=== PATIENT | male | born 1935 | race Caucasian/White ===

== ENCOUNTER 2019-12-12 12:41 | Observation (INO) | payer MEDICARE ==
[~2019-12-12] VITALS: Ht 182.9 cm; Wt 77.1 kg
[~2019-12-12 12:41] MED LIST: ACYC800 PO; OPTLUBOPOA OD; PRED20 PO
[2019-12-12 13:10] LABS: BASOPHILS ABSOLUTE AUTO 0.05 K/mm3 (0.00-0.23); BASOPHILS PERCENT AUTO 1 % (0-2); EOSINOPHILS ABSOLUTE AUTO 0.09 K/mm3 (0.00-0.68); EOSINOPHILS PERCENT AUTO 1 % (0-6); Hematocrit 42.7 % (37.0-53.0); Hemoglobin 14.5 g/dL (13.5-17.5); IMMATURE GRAN ABSOLUTE AUTO 0.04 K/mm3 (0.00-0.10); IMMATURE GRAN PERCENT AUTO 1 % (0-1); LYMPHOCYTES ABSOLUTE AUTO 1.56 K/mm3 (0.84-5.20); LYMPHOCYTES PERCENT AUTO 20 % (21-46); MONOCYTES ABSOLUTE AUTO 0.75 K/mm3 (0.16-1.47); MONOCYTES PERCENT AUTO 10 % (4-13); Mean Corpuscular Volume 88 fL (80-100); Mean Platelet Volume 12.2 fL (9.1-12.4); NEUTROPHILS ABSOLUTE AUTO 5.29 K/mm3 (1.96-9.15); NEUTROPHILS PERCENT AUTO 68 % (41-73); Platelet Count 123 K/mm3 (150-400); RDW Coefficient Variation 11.7 % (11.7-14.2); RDW Standard Deviation 37.8 fL (35.1-46.3); Red Blood Cell Count 4.83 M/mm3 (4.30-5.90); White Blood Cell Count 7.78 K/mm3 (4.00-11.30)
[2019-12-12 13:32] LABS: Alanine Aminotransfer (ALT/SGP 38 U/L (12-78); Albumin, Blood 3.6 g/dL (3.4-5.0); Albumin/Globulin Ratio 0.9 (0.8-1.8); Alk Phos 104 U/L (50-136); Anion Gap 6 mmol/L (6-16); Aspartate Aminotrans (AST/SGOT 21 U/L (12-37); Bilirubin, Total 0.7 mg/dL (0.1-1.0); Blood Urea Nitrogen 23 mg/dL (8-24); CO2, Blood 28 mmol/L (21-32); Chloride, Blood 97 mmol/L (98-108); Creatinine, Blood 0.85 mg/dL (0.60-1.20); Globulin, Blood 3.8 g/dL (2.2-4.0); Glomerular Filtration Rate >60 (60-); Glucose, Blood 438 mg/dL (70-99); Potassium, Blood 4.3 mmol/L (3.5-5.5); Sodium, Blood 131 mmol/L (136-145); Total Protein, Blood 7.4 g/dL (6.4-8.2)
[2019-12-12 15:56] LABS: Source, Urine Clean Catch
[2019-12-12 17:40] LABS: Appearance, Urine Clear (Clear); Bilirubin, Urine Neg (Neg); Blood, Urine 1+ (Neg); Color, Urine Yellow (P-Yellow); Glucose Qualitative, Urine 4+ (Neg); Ketones, Urine 3+ (Neg); Leukocyte Esterase, Urine Neg (Neg); Nitrite, Urine Neg (Neg); Protein, Urine Neg (Neg); Urobilinogen, Urine NORM (Normal)
[2019-12-12 18:24] LABS: Bacteria Few /hpf; Red Blood Cells, Urine 0-2 /hpf (0-2); Squamous Epithelial Cells Rare /hpf (Few); White Blood Cells, Urine 0-2 /hpf (0-5)
[2019-12-12] MEDS ORDERED: AMLO5 PO (18:58)
[2019-12-12] MEDS ORDERED: HYDCHL25 PO (18:59)
[2019-12-12] MEDS ORDERED: METO25 PO (18:59)
[2019-12-12] MEDS ORDERED: Glyburide5 MG PO (19:00)
[2019-12-12] MEDS ORDERED: Aspir 8181 MG PO (19:00)
[2019-12-12] MEDS ORDERED: METF500 PO (19:01)
[2019-12-12] MEDS ORDERED: MULTI-VITAMIN1 EAC2 PO (20:23)
--- NOTE | 2019-12-12 22:18 | NUR ---
2200 PT ADMITTED TO ROOM 344 PER CART FROM ER; THIS NURSE RECEIVED REPORT FROM KENDY BLUNT, VIA ER; ALERT AND ORIENTED X 1; BED ALARM APPLIED; PHOTOS TAKEN BILATERAL LOWER EXTREMITIES; SLIDE INTO BED VIA SLIDER SHEET FROM CART X 4 ASSIST.
--- NOTE | 2019-12-13 04:28 | NUR ---
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
--- NOTE | 2019-12-13 13:59 | NUR ---
Spoke with Dr Castañeda prior to Pt visit. Dr Castañeda had conversation with Pt's daughter and discussed goals of care. Pt has been failure to thrive and refusing medications. Family agrees to have Pt placed on Comfort Care. Pt is sitting in chair upon arrival. He is A&O to self only. Pt appears comfortable with no S/S of distress at this time. Palliative Care will F/U when family is present.
--- NOTE | 2019-12-13 17:40 | NUR ---
SHIFT SUMMARY PT VERY PREOCCUPIED WITH GOING BACK HOME AND CONSISTANTLY ATTEMPTING TO REDIRECT CONVERSATION BACK TO GOING HOME. DAUGHTER HERE THIS MORNING BUT HASN'T BEEN BACK SINCE. UP IN CHAIR MOST OF THE DAY WITH ONLY A SHORT NAP THIS AFTERNOON. 1 PERSON ASSIST FOR AMBULATION. DID REFUSE HIS MEDS THIS MORNING AND ANY LAB DRAWS. NOTIFIED.
--- NOTE | 2019-12-14 04:27 | NUR ---
SHIFT SUMMARY PT HAS RESTED OFF AND ON FOR MOST OF THE NIGHT, MOVES BETWEEN THE BED AND CHAIR FOR MOST OF THE NIGHT. PT IS A/O TO SELF WITH NONSENSICAL SPEECH. PT HOWEVER IS PLESANT WITH STAFF AND IS ABLE TO FOLLOW DIRECTION. PT HAS BEEN COMFORT MEASURES PER ORDERS. VITALS ARE STILL BEING DONE PT IS STILL RECEVING IS METOPROLOL. PT REFUSES HIS HS DOSE OF LANTUS DESPITE ENCOURAGEMENT. BG 230. PT COMFORT ASSESSED T/O SHIFT, HE DENIES PAIN WHEN ASKED. PT REPOSITONS HIMSELF IN BED INDEPENDENTLY MOST OF THE TIME. PT HAD AN INCONTINENT EPISODE OF URINE THIS SHIFT, REQUIRING A LINEN CHANGE. NO ACUTE CHANGES TO REPORT OVERNIGHT. BED IN LOWEST POSITION, CALL LIGHT WITHIN REACH. WILL CONTINUE TO MONITOR AND REPORT TO ONCOMING RN.
--- NOTE | 2019-12-14 14:23 | NUR ---
Pt sitting in chair upon arrival. Pt engages in non sensical conversation but appears comfortable. Pt is pleasantly confused. No S/S of distress at this time. Called and left a message with daughter Toya's instructing to call Palliative Care with any questions or concerns. Spoke with Dr Castañeda and discussed case. Dr Castañeda reports Pt is experiencing signs of dementia and is considering this diagnosis. Palliative Care will remain available.
--- NOTE | 2019-12-14 17:51 | NUR ---
SHIFT SUMMARY PT UP IN CHAIR MOST OF DAY. DID LAY DOWN LATE THIS AFTERNOON AND HAS NAPPED ON AND OFF SINCE THEN. TOOK HIS MEDS TODAY WITHOUT COMMENT BUT DID OBJECT TO INSULIN THIS MORNING. DID COOPERATE AND ALLOW INSULINS THOUGH. DAUGHTER IN TO VISIT FOR A SHORT TIME THIS MORNING AND PT PERSISTING IN WANTING TO GO HOME TODAY BUT EXPLAINED TO PT HE WOULD LIKELY GO BACK HOME TOMORROW. HAS BEEN COOPERATIVE THROUGHOUT DAY. TOOK A WALK WITH STAFF IN HALLWAY TO WINDOW AND BACK TO ROOM THIS AFTERNOON PRIOR TO NAP.
--- NOTE | 2019-12-15 04:30 | NUR ---
SHIFT SUMMARY PT HAS HAD NO ACUTE CHANGES THIS SHIFT, HAS SET OFF BED ALARM A FEW TIMES ATTEMPTING TO USE THE BATHROOM, PT REFUSED PM MEDS, CBG WAS 408 AND INSURANCE COORDINATOR ASSISTED W/INSULIN ADMIN. PT JUST TOILETD AND IS BEDRESTING AT THIS TIME, CALL LIGHT IN REACH, BED ALARM ON, WILL CONT TO MONITOR UNTIL REPORT GIVEN TO DAY RN.
--- NOTE | 2019-12-15 15:17 | NUR ---
DISCHARGE NOTE- PT DAUGHTER PRESENT FOR DISCHARGE INSTRUCTIONS. DURRING THE DISCHARGE TEACHING THE DAUGHTER STATED THAT THE PT DID NOT HAVE ANY OF HIS MEDICATIONS AT HOME. CALLED DR GARCIA AND LEFT A MESSAGE REQUESTING A FEW DAYS FILL FOR ALL OF THE PT HOME MEDICATIONS. THE PT DAUGHTER HAD AN APPOINTMENT AND STATED SHE WILL FOLLOW UP WITH THE PT PCP KAL. SHE DID NOT WANT TO WAIT FOR THE DOCTOR TO SAY YES OR NO TO THE SCRIPTS. SHE STATED SHE CAN CALL THE PT PCP ABOUT THE SCRIPTS. SHE WOULD LIKE A CALL IF ORDERS A REFILL FOR THE PERSCRIPTIONS.
--- NOTE | 2019-12-15 16:21 | NUR ---
RECIEVED A CALL FROM DR CASSIUS NGUYEN CALL IN A 2 WEEK FILL FOR ALL THE PT HOME MEDICATIONS CALLING ASAEL NOW FOR SCRIPT ORDERS. WILL CALL THE PT DAUGHTER PER HER REQUEST.
--- NOTE | 2019-12-15 18:33 | NUR ---
Initial spiritual care note: I met with pt's dtr, Twyla, who is known to me b/c her was in ICU recently. She admits to feeling overwhelmed. Her brother lives with pt, but he has MS and is somewhat debilitated according to twyla. Therefore, Twyla is stretched thin with caring for her spouse, father, and brother. Pt said little. He appears frail and withdrawn. I offered gentle family and marriage counsellor and affirmation to Twyla with good effect. Pt is being d/c'd.
== END 2019-12-15 15:15 | disposition home health service (06) ==
LOC: ER 12:41 → MEDS 12:42
PROVIDERS: Emergency Medicine; ADMIT Internal Medicine
DX: G93.40 Encephalopathy, unspecified (principal); F03.90 Unspecified dementia, unspecified severity, without behavioral disturbance, psychotic disturbance, mood disturbance, and anxiety; I10 Essential (primary) hypertension; E11.65 Type 2 diabetes mellitus with hyperglycemia; E11.621 Type 2 diabetes mellitus with foot ulcer; L97.519 Non-pressure chronic ulcer of other part of right foot with unspecified severity; I16.0 Hypertensive urgency; Z91.19 Patient's noncompliance with other medical treatment and regimen; Z79.82 Long term (current) use of aspirin; Z79.899 Other long term (current) drug therapy
CPT/HCPCS: 51701; 70450; 71046; 73660; 80053; 81001; 82947; 83036; 83605; 83880; 85025; 93005; 93010; 96361; 96372; 96374-59; 96375-59; 97110; 97116; 97161; 97165; 97530; 97535; 99285-25; A9270-GY; G0378; J1170; J1650; J1885; J7030

== ENCOUNTER → 2020-09-29 | Outpatient (CLI) | payer MEDICARE ==
[~2020-09-29] MED LIST changes: +ACET325 PO; +AMLO5 PO; +Aspir 8181 MG PO; +BASAGLAR K100 UNIT/1 SC; +Glyburide5 MG PO; +HUMALOG KW100 UNIT/1 SC; +HYDCHL25 PO; +LEVSOD25 PO; +METF500 PO; +METO25 PO; +MULTI-VITAMIN1 EAC2 PO; +Polyvinyl Alcoh15 ML BOTHEYES; +Prinivil10 MG PO; +SEROQUEL25 MG PO
[2020-09-29 19:05] LABS: BASOPHILS ABSOLUTE AUTO 0.11 K/mm3 (0.00-0.23); BASOPHILS PERCENT AUTO 2 % (0-2); EOSINOPHILS ABSOLUTE AUTO 0.36 K/mm3 (0.00-0.68); EOSINOPHILS PERCENT AUTO 5 % (0-6); Hematocrit 44.7 % (37.0-53.0); Hemoglobin 14.4 g/dL (13.5-17.5); IMMATURE GRAN ABSOLUTE AUTO 0.02 K/mm3 (0.00-0.10); IMMATURE GRAN PERCENT AUTO 0 % (0-1); LYMPHOCYTES ABSOLUTE AUTO 2.04 K/mm3 (0.84-5.20); LYMPHOCYTES PERCENT AUTO 28 % (21-46); MONOCYTES ABSOLUTE AUTO 0.62 K/mm3 (0.16-1.47); MONOCYTES PERCENT AUTO 9 % (4-13); Mean Corpuscular HGB 29.3 pg (26.0-34.0); Mean Corpuscular HGB Conc 32.2 g/dL (31.5-36.5); Mean Corpuscular Volume 91 fL (80-100); NEUTROPHILS ABSOLUTE AUTO 4.03 K/mm3 (1.96-9.15); NEUTROPHILS PERCENT AUTO 56 % (41-73); RDW Coefficient Variation 13.1 % (11.7-14.2); RDW Standard Deviation 43.4 fL (35.1-46.3); Red Blood Cell Count 4.92 M/mm3 (4.30-5.90); White Blood Cell Count 7.18 K/mm3 (4.00-11.30)
== END ==
LOC: LAB SHORT 13:55
PROVIDERS: Family Medicine
DX: E03.9 Hypothyroidism, unspecified (principal); E11.9 Type 2 diabetes mellitus without complications; I10 Essential (primary) hypertension; F02.81 Dementia in other diseases classified elsewhere, unspecified severity, with behavioral disturbance
CPT/HCPCS: 83036; 85025

== ENCOUNTER → 2020-12-22 | Outpatient (CLI) | payer MEDICARE ==
[2020-12-22 19:39] LABS: Alanine Aminotransfer (ALT/SGP 18 U/L (12-78); Albumin, Blood 3.8 g/dL (3.4-5.0); Albumin/Globulin Ratio 1.2 (0.8-1.8); Alk Phos 71 U/L (50-136); Anion Gap 5 mmol/L (6-16); Aspartate Aminotrans (AST/SGOT 19 U/L (12-37); Bilirubin, Total 0.6 mg/dL (0.1-1.0); Blood Urea Nitrogen 21 mg/dL (8-24); Bun/Creatinine Ratio 24.3 (12.0-20.0); CO2, Blood 30 mmol/L (21-32); Calcium, Blood 9.2 mg/dL (8.5-10.1); Chloride, Blood 103 mmol/L (98-108); Creatinine, Blood 0.86 mg/dL (0.60-1.20); Globulin, Blood 3.1 g/dL (2.2-4.0); Glomerular Filtration Rate >60 (60-); Glucose, Blood 134 mg/dL (70-99); Sodium, Blood 138 mmol/L (136-145); Total Protein, Blood 6.9 g/dL (6.4-8.2)
== END | disposition home or self-care (01) ==
LOC: LAB 18:56 → LAB SHORT 18:56
PROVIDERS: Family Medicine
DX: E11.9 Type 2 diabetes mellitus without complications (principal); D64.9 Anemia, unspecified
CPT/HCPCS: 80053; 83036; 83880

== ENCOUNTER → 2021-03-23 | Outpatient (CLI) | payer MEDICARE ==
[2021-03-23 18:58] LABS: BASOPHILS ABSOLUTE AUTO 0.07 K/mm3 (0.00-0.23); BASOPHILS PERCENT AUTO 1 % (0-2); EOSINOPHILS ABSOLUTE AUTO 0.29 K/mm3 (0.00-0.68); EOSINOPHILS PERCENT AUTO 4 % (0-6); Hematocrit 44.4 % (37.0-53.0); Hemoglobin 14.5 g/dL (13.5-17.5); IMMATURE GRAN ABSOLUTE AUTO 0.02 K/mm3 (0.00-0.10); IMMATURE GRAN PERCENT AUTO 0 % (0-1); LYMPHOCYTES ABSOLUTE AUTO 1.68 K/mm3 (0.84-5.20); LYMPHOCYTES PERCENT AUTO 26 % (21-46); MONOCYTES ABSOLUTE AUTO 0.62 K/mm3 (0.16-1.47); MONOCYTES PERCENT AUTO 9 % (4-13); Mean Corpuscular HGB 29.8 pg (26.0-34.0); Mean Corpuscular HGB Conc 32.7 g/dL (31.5-36.5); Mean Corpuscular Volume 91 fL (80-100); Mean Platelet Volume 12.7 fL (9.1-12.4); NEUTROPHILS ABSOLUTE AUTO 3.89 K/mm3 (1.96-9.15); NEUTROPHILS PERCENT AUTO 59 % (41-73); Platelet Count 131 K/mm3 (150-400); RDW Coefficient Variation 12.6 % (11.7-14.2); RDW Standard Deviation 41.8 fL (35.1-46.3); Red Blood Cell Count 4.87 M/mm3 (4.30-5.90); White Blood Cell Count 6.57 K/mm3 (4.00-11.30)
[2021-03-23 19:58] LABS: Alanine Aminotransfer (ALT/SGP 22 U/L (12-78); Albumin, Blood 4.1 g/dL (3.4-5.0); Alk Phos 92 U/L (50-136); Anion Gap 4 mmol/L (6-16); Aspartate Aminotrans (AST/SGOT 19 U/L (12-37); Bilirubin, Total 0.7 mg/dL (0.1-1.0); Blood Urea Nitrogen 18 mg/dL (8-24); Bun/Creatinine Ratio 16.5 (12.0-20.0); CO2, Blood 31 mmol/L (21-32); Chloride, Blood 102 mmol/L (98-108); Creatinine, Blood 1.09 mg/dL (0.60-1.20); Glomerular Filtration Rate >60 (60-); Glucose, Blood 235 mg/dL (70-99); Potassium, Blood 4.2 mmol/L (3.5-5.5); Sodium, Blood 137 mmol/L (136-145); Thyroxine (T4) 5.9 ug/dL (4.5-12.1); Total Protein, Blood 8.1 g/dL (6.4-8.2)
== END | disposition home or self-care (01) ==
LOC: LAB 12:42 → LAB SHORT 12:42
PROVIDERS: Family Medicine
DX: E11.9 Type 2 diabetes mellitus without complications (principal); G30.9 Alzheimer's disease, unspecified; I10 Essential (primary) hypertension
CPT/HCPCS: 80053; 83036; 83880; 84436; 84443; 85025

== ENCOUNTER → 2021-08-30 | Outpatient (CLI) | payer MEDICARE ==
[2021-08-30 12:23] LABS: BASOPHILS ABSOLUTE AUTO 0.09 K/mm3 (0.00-0.23); BASOPHILS PERCENT AUTO 1 % (0-2); EOSINOPHILS ABSOLUTE AUTO 0.58 K/mm3 (0.00-0.68); EOSINOPHILS PERCENT AUTO 8 % (0-6); Hematocrit 44.1 % (37.0-53.0); Hemoglobin 14.3 g/dL (13.5-17.5); IMMATURE GRAN ABSOLUTE AUTO 0.02 K/mm3 (0.00-0.10); IMMATURE GRAN PERCENT AUTO 0 % (0-1); LYMPHOCYTES ABSOLUTE AUTO 0.97 K/mm3 (0.84-5.20); LYMPHOCYTES PERCENT AUTO 13 % (21-46); MONOCYTES ABSOLUTE AUTO 0.57 K/mm3 (0.16-1.47); MONOCYTES PERCENT AUTO 7 % (4-13); Mean Corpuscular HGB 29.6 pg (26.0-34.0); Mean Corpuscular HGB Conc 32.4 g/dL (31.5-36.5); Mean Corpuscular Volume 91 fL (80-100); NEUTROPHILS ABSOLUTE AUTO 5.44 K/mm3 (1.96-9.15); NEUTROPHILS PERCENT AUTO 71 % (41-73); Platelet Count 94 K/mm3 (150-400); RDW Coefficient Variation 12.7 % (11.7-14.2); RDW Standard Deviation 42.4 fL (35.1-46.3); Red Blood Cell Count 4.83 M/mm3 (4.30-5.90); White Blood Cell Count 7.67 K/mm3 (4.00-11.30)
[2021-08-30 12:26] LABS: Alanine Aminotransfer (ALT/SGP 45 U/L (12-78); Albumin, Blood 3.6 g/dL (3.4-5.0); Albumin/Globulin Ratio 0.9 (0.8-1.8); Alk Phos 125 U/L (50-136); Anion Gap 9 mmol/L (6-16); Aspartate Aminotrans (AST/SGOT 36 U/L (12-37); Bilirubin, Total 0.6 mg/dL (0.1-1.0); Blood Urea Nitrogen 19 mg/dL (8-24); Bun/Creatinine Ratio 21.1 (12.0-20.0); CO2, Blood 30 mmol/L (21-32); Calcium, Blood 9.2 mg/dL (8.5-10.1); Chloride, Blood 98 mmol/L (98-108); Globulin, Blood 4.2 g/dL (2.2-4.0); Glomerular Filtration Rate >60 (60-); Glucose, Blood 312 mg/dL (70-99); Potassium, Blood 3.9 mmol/L (3.5-5.5); Sodium, Blood 137 mmol/L (136-145); Thyroxine (T4) 6.2 ug/dL (4.5-12.1); Total Protein, Blood 7.8 g/dL (6.4-8.2)
[2021-08-30 12:31] LABS: Mean Platelet Volume 13.3 fL (9.1-12.4)
== END ==
LOC: LAB SHORT 10:15
PROVIDERS: Family Medicine
DX: E11.9 Type 2 diabetes mellitus without complications (principal); E03.9 Hypothyroidism, unspecified; G30.9 Alzheimer's disease, unspecified; I11.0 Hypertensive heart disease with heart failure; I50.9 Heart failure, unspecified
CPT/HCPCS: 80053; 83036; 83880; 84436; 84443; 85025

== ENCOUNTER 2021-09-17 10:46 | Inpatient (IN) | payer MEDICARE ==
[~2021-09-17] VITALS: Ht 182.9 cm; Wt 90.7 kg
[2021-09-17 11:10] LABS: BASOPHILS ABSOLUTE AUTO 0.08 K/mm3 (0.00-0.23); BASOPHILS PERCENT AUTO 0 % (0-2); EOSINOPHILS PERCENT AUTO 0 % (0-6); Hematocrit 37.1 % (37.0-53.0); Hemoglobin 12.4 g/dL (13.5-17.5); IMMATURE GRAN ABSOLUTE AUTO 1.15 K/mm3 (0.00-0.10); IMMATURE GRAN PERCENT AUTO 5 % (0-1); LYMPHOCYTES ABSOLUTE AUTO 1.46 K/mm3 (0.84-5.20); LYMPHOCYTES PERCENT AUTO 6 % (21-46); MONOCYTES ABSOLUTE AUTO 1.56 K/mm3 (0.16-1.47); MONOCYTES PERCENT AUTO 7 % (4-13); Mean Corpuscular HGB 29.8 pg (26.0-34.0); Mean Corpuscular HGB Conc 33.4 g/dL (31.5-36.5); Mean Corpuscular Volume 89 fL (80-100); Mean Platelet Volume 12.8 fL (9.1-12.4); NEUTROPHILS ABSOLUTE AUTO 19.35 K/mm3 (1.96-9.15); NEUTROPHILS PERCENT AUTO 82 % (41-73); Platelet Count 82 K/mm3 (150-400); RDW Coefficient Variation 13.1 % (11.7-14.2); RDW Standard Deviation 42.7 fL (35.1-46.3); Red Blood Cell Count 4.16 M/mm3 (4.30-5.90)
[2021-09-17 11:19] LABS: Albumin, Blood 2.7 g/dL (3.4-5.0); Albumin/Globulin Ratio 0.7 (0.8-1.8); Bilirubin, Total 0.8 mg/dL (0.1-1.0); Bun/Creatinine Ratio 22.7 (12.0-20.0); C-REACTIVE PROTEIN, EXT RANGE 18.7 mg/dL (0.000-0.300); Calcium, Blood 9.2 mg/dL (8.5-10.1); Creatinine, Blood 2.03 mg/dL (0.60-1.20); Globulin, Blood 3.7 g/dL (2.2-4.0); Potassium, Blood 4.6 mmol/L (3.5-5.5); Total Protein, Blood 6.4 g/dL (6.4-8.2)
[2021-09-17] MEDS ORDERED: Prozac20 MG PO (11:27)
[2021-09-17] MEDS ORDERED: FURO40 PO (11:27)
[2021-09-17] MEDS ORDERED: MELO7.5 PO (11:28)
[2021-09-17] MEDS ORDERED: MIRALAX17 G3 PO (11:28)
[2021-09-17] MEDS ORDERED: POTA10T PO (11:29)
[2021-09-17] MEDS ORDERED: TRAZ50 PO (11:30)
--- NOTE | 2021-09-17 13:00 | NUR ---
ADMIT NOTE PT ADMITTED FROM ER FOR CELLULITIS AND AMS. REPORT RECIEVED FROM KENDY FONG. PT ARRIVED VIA GURNEY AND WAS A MAX ASSIST LIFT TRANSFER TO BED. PT IS NON-RESPONSIVE AND DOES NOT FOLLOW COMMANDS. PT SITUATED IN A POSITION OF COMFORT WITH BED IN LOWEST POSITION AND CALL LIGHT WITHING REACH. PT DOES NOT APPEAR TO BE IN ANY DISTRESS.
[2021-09-17 15:23] LABS: C DIFFICILE DNA NEGATIVE (Negative)
--- NOTE | 2021-09-17 17:28 | NUR ---
SHIFT SUMMARY PT REMAINED NON-RESPONSIVE T/O SHIFT. PT'S DAUGHTER ARRIVED AND SAT AT BEDSIDE FOR A FEW MINUTES AND LEFT HER CONTACT INFORMATION ON THE WHITE BOARD IN PT'S ROOM. NO OTHER CHANGES THIS SHIFT.
[2021-09-18 04:58] LABS: BASOPHILS ABSOLUTE AUTO 0.04 K/mm3 (0.00-0.23); BASOPHILS PERCENT AUTO 0 % (0-2); EOSINOPHILS ABSOLUTE AUTO 0.01 K/mm3 (0.00-0.68); EOSINOPHILS PERCENT AUTO 0 % (0-6); Hemoglobin 11.7 g/dL (13.5-17.5); IMMATURE GRAN ABSOLUTE AUTO 0.57 K/mm3 (0.00-0.10); IMMATURE GRAN PERCENT AUTO 3 % (0-1); LYMPHOCYTES ABSOLUTE AUTO 1.49 K/mm3 (0.84-5.20); LYMPHOCYTES PERCENT AUTO 8 % (21-46); MONOCYTES ABSOLUTE AUTO 1.34 K/mm3 (0.16-1.47); MONOCYTES PERCENT AUTO 7 % (4-13); Mean Corpuscular HGB 29.5 pg (26.0-34.0); Mean Corpuscular HGB Conc 32.5 g/dL (31.5-36.5); Mean Corpuscular Volume 91 fL (80-100); NEUTROPHILS ABSOLUTE AUTO 15.24 K/mm3 (1.96-9.15); NEUTROPHILS PERCENT AUTO 82 % (41-73); Platelet Count 76 K/mm3 (150-400); RDW Coefficient Variation 13.1 % (11.7-14.2); RDW Standard Deviation 43.3 fL (35.1-46.3); Red Blood Cell Count 3.97 M/mm3 (4.30-5.90); White Blood Cell Count 18.69 K/mm3 (4.00-11.30)
--- NOTE | 2021-09-18 05:15 | NUR ---
SHIFT SUMMARY PT WAS ASLEEP IN BED WITH RISE AND FALL OF CHEST WITH NO S/S OF DISTRESS AT THE START OF THIS SHIFT. THIS NURSE WAS ABLE TO GET PT TO OPEN EYES TO VERBAL COMMAND, BARELY, BUT VERY LETHARGIC. PT HAD A FEVER AND NEW ORDER FOR TYLENOL SUPP. WAS GIVEN AND EFFECTIVE THIS SHIFT. BS HELD PER DOCTOR D/T NOT BEING RESPONSIVE. PT HAS FLUIDS RUNNING AND HOB ELEVATED WITH O2 VIA N/C IN PLACE. PT CURRENTLY RESTING IN BED AND RESPONDS TO TOUCH/VOICES, WILL CONTINUE TO MONITOR UNTIL REPORT IS GIVEN.
[2021-09-18 05:17] LABS: Mean Platelet Volume 13.1 fL (9.1-12.4)
[2021-09-18 05:41] LABS: Albumin, Blood 2.5 g/dL (3.4-5.0); Anion Gap 8 mmol/L (6-16); Blood Urea Nitrogen 51 mg/dL (8-24); Bun/Creatinine Ratio 30.2 (12.0-20.0); CO2, Blood 27 mmol/L (21-32); Calcium, Blood 8.9 mg/dL (8.5-10.1); Chloride, Blood 104 mmol/L (98-108); Creatinine, Blood 1.69 mg/dL (0.60-1.20); Glomerular Filtration Rate 39 (60-); Glucose, Blood 241 mg/dL (70-99); Phosphorus, Blood 2.9 mg/dL (2.5-4.9); Potassium, Blood 4.2 mmol/L (3.5-5.5); Sodium, Blood 139 mmol/L (136-145); Vancomycin, Random <0.8 ug/mL
--- NOTE | 2021-09-18 18:04 | NUR ---
PT SUMMARY: PT CAME MORE ALERT FOR THE SHIFT BEFORE LUNCH TIME STILL LETHARGIC MOST OF THE SHIFT WAS ABLE TO SIT ON THE SIDE OF THE BED ONCE, ABLE TO STATE NAME BUT MOSTLY WORDS ARE NONSENSICAL WHICH THE NURSE FROM [facility] VERIFIED ITS CLSOE TO HIS BASELINE DUE TO DEMENTIA AND THE PT IS INDEPENDENTLY MOBILE ADN AMBULATES, THE LEFT EYELID DROOP IS ALSO CHRONIC. PT UNABLE TO FOCUS AND FOLLOWS DIRECTION FALLS ASLEEP QUICK. UNABLE TO FEED PT TODAY DUE TO POSS ASPIRATION. MAINTENANCE FLUID LR SWITCHED TO NS AT 75MLS/HR. PT IS INCONTINENT OF BOTH BOWEL AND BLADDER HAD 2 BMS FOR THE SHIFT ATTENDS IN PLACE. DAUGHTER CAME IN TO VISIT. PT HAD A FEVER OF 100.1 BEFORE THE END OF THE SHIFT WENT DOWN TO 98.5 AFTER TYLENOL SUPP. PT HAS BEEN REPOSITIONED IN BED, BED ALARM ON FOR SAFETY, PT REDIRECTED WHEN ATTEMPTING TO GET OUT OF BED. PIV ON LEFT HAND REPLACED AFTER PT PULLED THE LINE, NS NOW INFUSING 75MLS/HR. NO OTHER ISSUES ENCOUNTERED PT RESTING IN BED CALL LIGHTS IN REACH WILL MONITOR
--- NOTE | 2021-09-19 05:18 | NUR ---
SHIFT SUMMARY PT. AOX1 VERY CONFUSED, IMPULSIVE AND NOT EASY TO REDIRECT ALL SHIFT. BED ALARM IN PLACE AND PT CONTINUES TO PULL OF BRIEFS, GOWNS AND JUST PULLED OUT IV. PT CONTINUES TO TRY TO EXIT BED WITH ALARM IN PLACE. PT. PICKS AT LEFT EYE AND ATTEMPTS TO EAT WIPES WHILE BEING CLEANED. PT. CURRENTLY AWAKE IN BED AND THIS NURSE WILL CONTINUE TO MONITOR UNTIL REPORT IS GIVEN.
--- NOTE | 2021-09-19 17:50 | NUR ---
SHIFT SUMMARY- PT DIET ORDER CHANGED AFTER SPEECH THERAPY EVAL TO PUREE WITH THIN LIQUIDS BY SPOON. PT IS A 1:1 FEED ASSIST MEDS CRUSHED IN APPLESAUCE. PT HAS ATTEMPTED TO GET OUT OF BED A COUPLE OF TIMES THIS SHIFT. IV IN PLACE IN THE RUDY RUNNING NS AT 75ML/HR. PT HAS HAD NO S&S OF DISTRESS T/O THE DAY. HIS DAUGHTER CAME TO VISIT AND CONFIRMED THE PT BASELINE MENTATION IS CONFUSED, AND PT SPEEKS IN WORD SALAD, WHICH IS ALSO BASELINE. PT BG CHANGED TO AC/HS AND HUMALOG CHANGED TO AC PER DR LAW ORDER. PT CURRENTLY SITTING UP IN BED, CALL LIGHT IN REACH, BED ALARM SET FOR SAFETY, CAN ASSISTING THE PT WITH DINNER AT THIS TIME. NO S&S OF DISTRESS AT THIS TIME. WILL CTM.
[2021-09-20 05:34] LABS: BASOPHILS ABSOLUTE AUTO 0.05 K/mm3 (0.00-0.23); BASOPHILS PERCENT AUTO 1 % (0-2); EOSINOPHILS ABSOLUTE AUTO 0.11 K/mm3 (0.00-0.68); EOSINOPHILS PERCENT AUTO 1 % (0-6); Hematocrit 35.8 % (37.0-53.0); Hemoglobin 11.5 g/dL (13.5-17.5); IMMATURE GRAN ABSOLUTE AUTO 0.05 K/mm3 (0.00-0.10); IMMATURE GRAN PERCENT AUTO 1 % (0-1); LYMPHOCYTES PERCENT AUTO 15 % (21-46); MONOCYTES ABSOLUTE AUTO 0.95 K/mm3 (0.16-1.47); MONOCYTES PERCENT AUTO 12 % (4-13); Mean Corpuscular HGB 29.6 pg (26.0-34.0); Mean Corpuscular HGB Conc 32.1 g/dL (31.5-36.5); Mean Corpuscular Volume 92 fL (80-100); Mean Platelet Volume 12.4 fL (9.1-12.4); NEUTROPHILS ABSOLUTE AUTO 5.78 K/mm3 (1.96-9.15); NEUTROPHILS PERCENT AUTO 71 % (41-73); Platelet Count 81 K/mm3 (150-400); RDW Coefficient Variation 12.8 % (11.7-14.2); RDW Standard Deviation 43.3 fL (35.1-46.3); Red Blood Cell Count 3.89 M/mm3 (4.30-5.90); White Blood Cell Count 8.14 K/mm3 (4.00-11.30)
[2021-09-20 06:30] LABS: Albumin, Blood 2.6 g/dL (3.4-5.0); Anion Gap 6 mmol/L (6-16); Blood Urea Nitrogen 26 mg/dL (8-24); CO2, Blood 28 mmol/L (21-32); Calcium, Blood 8.7 mg/dL (8.5-10.1); Chloride, Blood 108 mmol/L (98-108); Creatinine, Blood 0.93 mg/dL (0.60-1.20); Glomerular Filtration Rate >60 (60-); Glucose, Blood 248 mg/dL (70-99); Phosphorus, Blood 2.1 mg/dL (2.5-4.9); Potassium, Blood 4.5 mmol/L (3.5-5.5); Sodium, Blood 142 mmol/L (136-145); Vancomycin, Trough 8.3 ug/mL (5.0-10.0)
--- NOTE | 2021-09-20 07:36 | NUR ---
WET WHEELER SUMMARY PT HAD A FAIR SHIFT. BP OVER THE PAST HRS ELEVATED. DR. SIMMS INFORMED AND A ONE TIME DOSE OF METOPROLOL WAS ADMINISTERED SEE EMAR. HE OULLED HIS IV OUT, ALL EFFORTS TO REPLACE IT WAS FUTILE. WILL CONTINUE TO MONITOR HIM.
[2021-09-20] MEDS ORDERED: VITAMIN D5000 UNIT PO (12:38)
[2021-09-20] MEDS ORDERED: DOXY100 PO (12:38)
--- NOTE | 2021-09-20 15:07 | NUR ---
PATIENT D/C'D BACK TO [facility]. SPOKE WITH DARON PINO THERE AND A GURNEY TRANSPORT WAS APPROVED. RX MEDICATIONS FAXED TO [facility] AND PACKET SENT WITH TRANSPORT TEAM.
== END 2021-09-20 15:07 | disposition home or self-care (01) | DRG 871 ==
LOC: ER 10:46 → MEDS 12:12 → ER 12:12 → MEDS 12:29
PROVIDERS: Emergency Medicine; ADMIT Internal Medicine
DX: A41.9 Sepsis, unspecified organism (principal); G92.8 Other toxic encephalopathy; N17.9 Acute kidney failure, unspecified; L03.116 Cellulitis of left lower limb; E11.65 Type 2 diabetes mellitus with hyperglycemia; Z66 Do not resuscitate; F03.90 Unspecified dementia, unspecified severity, without behavioral disturbance, psychotic disturbance, mood disturbance, and anxiety; R65.20 Severe sepsis without septic shock; I10 Essential (primary) hypertension; E03.9 Hypothyroidism, unspecified; Z79.899 Other long term (current) drug therapy; D69.6 Thrombocytopenia, unspecified; S22.42XD Multiple fractures of ribs, left side, subsequent encounter for fracture with routine healing; X58.XXXD Exposure to other specified factors, subsequent encounter
CPT/HCPCS: 36415; 71045; 76770; 80053; 80069; 80202; 82947; 83605; 85025; 86140; 87040; 87493; 92610; 93005; 93010; 99285-25; A9270; J0696; J1644; J1815; J3370; J7030; J7050; J7120

== ENCOUNTER 2021-09-22 10:53 | Inpatient (IN) | payer MEDICARE ==
[~2021-09-22] VITALS: Ht 180.3 cm; Wt 91.4 kg
[~2021-09-22 10:53] MED LIST changes: +DOXY100 PO; +FURO40 PO; +MELO7.5 PO; +MIRALAX17 G3 PO; +POTA10T PO; +Prozac20 MG PO; +TRAZ50 PO; +VITAMIN D5000 UNIT PO
[2021-09-22] MEDS ORDERED: MOBIC15 MG PO (11:17)
[2021-09-22] MEDS ORDERED: TRAZ50 PO (11:18)
[2021-09-22 11:30] LABS: BASOPHILS ABSOLUTE AUTO 0.05 K/mm3 (0.00-0.23); BASOPHILS PERCENT AUTO 0 % (0-2); EOSINOPHILS ABSOLUTE AUTO 0.08 K/mm3 (0.00-0.68); EOSINOPHILS PERCENT AUTO 1 % (0-6); Hematocrit 37.5 % (37.0-53.0); Hemoglobin 12.4 g/dL (13.5-17.5); IMMATURE GRAN ABSOLUTE AUTO 0.15 K/mm3 (0.00-0.10); IMMATURE GRAN PERCENT AUTO 1 % (0-1); LYMPHOCYTES ABSOLUTE AUTO 1.19 K/mm3 (0.84-5.20); LYMPHOCYTES PERCENT AUTO 10 % (21-46); MONOCYTES ABSOLUTE AUTO 1.34 K/mm3 (0.16-1.47); MONOCYTES PERCENT AUTO 12 % (4-13); Mean Corpuscular HGB Conc 33.1 g/dL (31.5-36.5); Mean Corpuscular Volume 91 fL (80-100); Mean Platelet Volume 11.8 fL (9.1-12.4); NEUTROPHILS ABSOLUTE AUTO 8.88 K/mm3 (1.96-9.15); NEUTROPHILS PERCENT AUTO 76 % (41-73); Platelet Count 126 K/mm3 (150-400); RDW Coefficient Variation 12.7 % (11.7-14.2); RDW Standard Deviation 41.7 fL (35.1-46.3); Red Blood Cell Count 4.14 M/mm3 (4.30-5.90); White Blood Cell Count 11.69 K/mm3 (4.00-11.30)
[2021-09-22 11:39] LABS: Alanine Aminotransfer (ALT/SGP 23 U/L (12-78); Albumin, Blood 2.3 g/dL (3.4-5.0); Albumin/Globulin Ratio 0.6 (0.8-1.8); Alk Phos 133 U/L (50-136); Anion Gap 5 mmol/L (6-16); Aspartate Aminotrans (AST/SGOT 20 U/L (12-37); Bilirubin, Total 0.7 mg/dL (0.1-1.0); Blood Urea Nitrogen 21 mg/dL (8-24); Bun/Creatinine Ratio 23.8 (12.0-20.0); CO2, Blood 27 mmol/L (21-32); Calcium, Blood 8.3 mg/dL (8.5-10.1); Chloride, Blood 109 mmol/L (98-108); Creatinine, Blood 0.88 mg/dL (0.60-1.20); Globulin, Blood 3.6 g/dL (2.2-4.0); Glomerular Filtration Rate >60 (60-); Glucose, Blood 174 mg/dL (70-99); Potassium, Blood 3.9 mmol/L (3.5-5.5); Sodium, Blood 141 mmol/L (136-145); Total Protein, Blood 5.9 g/dL (6.4-8.2)
[2021-09-22] MEDS ORDERED: CEPH500 PO (13:06)
--- NOTE | 2021-09-22 19:01 | NUR ---
SHIFT SUMMARY ED ADMIT THIS EVENING. SETTLED INTO ROOM, CONFUSED AND DROWSY. PHOTOS OF LLE CELLULITIS IN CHART. REPOSITIONED WITH LEGS FLOATED.
[2021-09-23 04:59] LABS: Hematocrit 38.7 % (37.0-53.0); Hemoglobin 12.5 g/dL (13.5-17.5); Mean Corpuscular HGB 29.1 pg (26.0-34.0); Mean Corpuscular HGB Conc 32.3 g/dL (31.5-36.5); Mean Corpuscular Volume 90 fL (80-100); Mean Platelet Volume 11.8 fL (9.1-12.4); Platelet Count 147 K/mm3 (150-400); RDW Coefficient Variation 12.8 % (11.7-14.2); RDW Standard Deviation 42.1 fL (35.1-46.3); Red Blood Cell Count 4.29 M/mm3 (4.30-5.90); White Blood Cell Count 12.62 K/mm3 (4.00-11.30)
--- NOTE | 2021-09-23 05:58 | NUR ---
PT IS A/OX TO SELF. HE BECAME RESTLESS AND A KALYAN VEST WAS ORDERED. Q2 RESTRAINT DOCUMENTATION HAS BEEN DONE. THE PT HAS BEEN CALM DURING THE REMAINDER OF THE SHIFT. HE HAS LR @50/INTERMITTENT ABX.
[2021-09-23 06:01] LABS: Anion Gap 9 mmol/L (6-16); Blood Urea Nitrogen 16 mg/dL (8-24); Bun/Creatinine Ratio 20.1 (12.0-20.0); CO2, Blood 26 mmol/L (21-32); Calcium, Blood 8.7 mg/dL (8.5-10.1); Chloride, Blood 106 mmol/L (98-108); Glomerular Filtration Rate >60 (60-); Glucose, Blood 137 mg/dL (70-99); Potassium, Blood 3.5 mmol/L (3.5-5.5); Sodium, Blood 141 mmol/L (136-145)
--- NOTE | 2021-09-23 16:38 | NUR ---
SHIFT SUMMARY PATIENT MORE ALERT TODAY BUT CONFUSED, SPEECH STILL GARBLED BUT ABLE TO ANSWER SOME YES/NO QUESTIONS. SPEECH EVAL TODAY, PUREE DIET AND THIN LIQUIDS WITH ASPIRATION PRECAUTIONS. KALYAN IN PLACE FOR FALL RISK. DAUGHTER VISITED IN AFTERNOON.
--- NOTE | 2021-09-24 02:08 | NUR ---
AMADA PULLED OUT HIS IV AT MIDNIGHT. INFUSION ON HOLD. BOTH ME AND CHARGE NURSE KAREL MCCARTHY UNCUSSESSFULLY ATTEMPTED TO PUT A NEW IVIN. WAITING ON ICU STAFF HELP.
--- NOTE | 2021-09-24 04:15 | NUR ---
SHIFT SUMMARY: AMADA YBARRA IS STILL CONFUSED AT BASELINE, STILL PULLING AND AGITATING LEGS. HE PULLED OUT HIS IV IN THE MIDDLE OF THE NIGHT. WE ATTEMPTED TO PUT A NEW ONE BUT HE WAS COMBATIVE, WE WERE UNSUCCESSFUL. ICU STAFF CAME IN AND PUT IN A NEW ONE WHILE HE WAS FALLING ASLEEP. MED INFUSION WAS RESUMED.
[2021-09-24 04:54] LABS: Hematocrit 36.8 % (37.0-53.0); Hemoglobin 11.8 g/dL (13.5-17.5); Mean Corpuscular HGB 29.6 pg (26.0-34.0); Mean Corpuscular HGB Conc 32.1 g/dL (31.5-36.5); Mean Corpuscular Volume 92 fL (80-100); Mean Platelet Volume 11.4 fL (9.1-12.4); Platelet Count 157 K/mm3 (150-400); RDW Coefficient Variation 12.8 % (11.7-14.2); RDW Standard Deviation 43.6 fL (35.1-46.3); Red Blood Cell Count 3.99 M/mm3 (4.30-5.90); White Blood Cell Count 10.76 K/mm3 (4.00-11.30)
[2021-09-24 05:47] LABS: Vancomycin, Trough 10.7 ug/mL (5.0-10.0)
--- NOTE | 2021-09-24 18:39 | NUR ---
SHIFT SUMMARY PATIENT SLEEPING IN BED. A&O TO SELF. CONFUSED AND UNABLE TO ANSWER ANY QUESTIONS. PATIENT WILL MUMBLE INCOHERENTLY. ASPIRATION PRECAUTION. TOLERATES SIPS BUT STRAW MUST BE REMOVED BETWEEN SIPS. PATIENT SLEPT MOST OF THE DAY BUT WS EASILY AROUSED DURING TURNING, CHANGES, AND MEAL TIMES. BED IN LOW POSTION WITH ALARM ON. WILL CONTINUE TO MONITOR.
--- NOTE | 2021-09-25 03:12 | NUR ---
SHIFT SUMMARY PATIENT HAD NO ACUTE CHANGES OBSERVED. ALERT TO SELF WITH GARBLED SPEECH. KALYAN VEST AND BILATERAL SOFT WRIST RESTRAINTS PER HOSPITALIST ORDER DR AVILES, R/T PULLING OUT MULTIPLE PIVS AND FALL RISK. PIV REMAINS INTACT.IV ABX INFUSED. LR INFUSING AT 50mL/HR. VSS/AFEBRILE. DENIES PAIN, SOB, AND N/V. CALL LIGHT IN REACH. BED IN LOWEST POSITION AND ALARM ACTIVATED. WILL CONTINUE TO MONITOR UNTIL DAY SHIFT NURSE ASSUMES CARE.
--- NOTE | 2021-09-25 18:21 | NUR ---
SHIFT SUMMARY PATIENT RESTING IN BED. A&O TO SELF. MUMBLES INCOHERENTLY T/O SHIFT. PATIENT IS IN VEST AND WRIST RESTRAINTS. PATIENT HAS TRIED MULTIPLE TIMES TO PULL OUT IV AND HAS BEEN RESTLESS IN BED TODAY. PATIENT IS TOLERATING SMALL SIPS OF WATER WELL. BED ALARM ON IN LOW POSITION WITH CALL LIGHT IN REACH. WILL CONTINUE TO MONITOR.
--- NOTE | 2021-09-25 20:54 | NUR ---
HOSPITALIST DR AVILES RENEWED BILATERAL SOFT WRIST RESTRAINTS AND KALYAN VEST. NO IV ACCESS ORDERED. PO APRESOLINE 25 MG ORDERED Q8 FOR SBP>160.
--- NOTE | 2021-09-25 22:36 | NUR ---
BP 177/86 AND PO APRESOLINE 25 MG GIVEN FOR SBP>160 BP 159/97 ON RECHECK
--- NOTE | 2021-09-26 03:11 | NUR ---
SHIFT SUMMARY PATIENT HAD NO ACUTE CHANGES OBSERVED. ALERT TO SELF WITH GARBLED SPEECH. BEDREST. TAKES MEDICATION WHOLE IN APPLE SAUCE. NO IV ACCESS. KALYAN VEST AND BILATERAL SOFT WRIST RESTRAINTS PER ORDER. HYPERTENISVE 177/86 AND PO APRESOLINE 25 MG GIVEN FOR SBP>160. RECHECK: 159/97. RESTING IN BED T/O SHIFT. DENIES PAIN, SOB, AND N/V. AFEBRILE. CALL LIGHT IN REACH. BED IN LOWEST POSITION. WILL CONTINUE TO MONITOR UNTIL DAY SHIFT NURSE ASSUMES CARE.
--- NOTE | 2021-09-26 06:29 | NUR ---
BP 171/89 AND PO APRESOLINE 25 MG GIVEN PER EMAR FOR SBP>160 BP 158/90 ON RECHECK
--- NOTE | 2021-09-26 16:04 | NUR ---
SHIFT SUMMARY PATIENT MEDICATED X1 WITH TYLENOL FOR LEG PAIN. MAINTAINING OXYGEN SATURATION ABOVE 92% ON ROOM AIR. ORIENTED TO SELF ONLY. EATING AND DRINKING WELL. BOWEL CARE GIVEN TO GOOD EFFECT. KALYAN ON FOR FALL RISK. DROWSY THIS AFTERNOON AND UNBLE TO COMPLETE PT EVAL.
--- NOTE | 2021-09-27 04:24 | NUR ---
VERY SOMNOLENT TONIGHT, WAKING ONLY FOR TURNS AND ASSESSMENT. STILL TRYING TO GET OVER THE RAILS WELL DURING BED AND POSITION CHANGES
[2021-09-27 06:00] LABS: BASOPHILS ABSOLUTE AUTO 0.11 K/mm3 (0.00-0.23); BASOPHILS PERCENT AUTO 1 % (0-2); EOSINOPHILS ABSOLUTE AUTO 0.21 K/mm3 (0.00-0.68); EOSINOPHILS PERCENT AUTO 2 % (0-6); Hematocrit 38.8 % (37.0-53.0); Hemoglobin 12.3 g/dL (13.5-17.5); IMMATURE GRAN ABSOLUTE AUTO 0.07 K/mm3 (0.00-0.10); IMMATURE GRAN PERCENT AUTO 1 % (0-1); LYMPHOCYTES ABSOLUTE AUTO 1.45 K/mm3 (0.84-5.20); LYMPHOCYTES PERCENT AUTO 13 % (21-46); MONOCYTES ABSOLUTE AUTO 1.09 K/mm3 (0.16-1.47); MONOCYTES PERCENT AUTO 10 % (4-13); Mean Corpuscular HGB 29.3 pg (26.0-34.0); Mean Corpuscular HGB Conc 31.7 g/dL (31.5-36.5); Mean Corpuscular Volume 92 fL (80-100); Mean Platelet Volume 11.4 fL (9.1-12.4); NEUTROPHILS ABSOLUTE AUTO 8.31 K/mm3 (1.96-9.15); NEUTROPHILS PERCENT AUTO 74 % (41-73); Platelet Count 215 K/mm3 (150-400); RDW Coefficient Variation 12.9 % (11.7-14.2); RDW Standard Deviation 43.6 fL (35.1-46.3); White Blood Cell Count 11.24 K/mm3 (4.00-11.30)
--- NOTE | 2021-09-27 16:06 | NUR ---
SHIFT SUMMARY MEDICATED X2 FOR PAIN THIS SHIFT. PATIENT DROWSY AND DIFFUCULT TO AROUSE FREQUENTLY DURING SHIFT. PATIENT UNABLE TO PARTICIPATE IN PT EVAL DUE TO INABILITY TO FOLLOW CUES. PATIENT CHANGED TO CRUSHED MEDICATIONS BY SPEECH THERAPY. ULTRASOUND AND CT OF LLE COMPLETED. PALLIATIVE CARE NURSE REQUESTED TO CONSULT ON PATIENT. KALYAN IN PLACE FOR FALL RISK.
[2021-09-28 05:20] LABS: BASOPHILS ABSOLUTE AUTO 0.09 K/mm3 (0.00-0.23); BASOPHILS PERCENT AUTO 1 % (0-2); EOSINOPHILS ABSOLUTE AUTO 0.22 K/mm3 (0.00-0.68); EOSINOPHILS PERCENT AUTO 2 % (0-6); Hematocrit 36.7 % (37.0-53.0); IMMATURE GRAN ABSOLUTE AUTO 0.05 K/mm3 (0.00-0.10); IMMATURE GRAN PERCENT AUTO 1 % (0-1); LYMPHOCYTES ABSOLUTE AUTO 1.46 K/mm3 (0.84-5.20); LYMPHOCYTES PERCENT AUTO 15 % (21-46); MONOCYTES ABSOLUTE AUTO 0.95 K/mm3 (0.16-1.47); MONOCYTES PERCENT AUTO 10 % (4-13); Mean Corpuscular HGB 29.7 pg (26.0-34.0); Mean Corpuscular HGB Conc 32.7 g/dL (31.5-36.5); Mean Corpuscular Volume 91 fL (80-100); Mean Platelet Volume 11.7 fL (9.1-12.4); NEUTROPHILS ABSOLUTE AUTO 6.83 K/mm3 (1.96-9.15); NEUTROPHILS PERCENT AUTO 71 % (41-73); Platelet Count 214 K/mm3 (150-400); RDW Coefficient Variation 12.7 % (11.7-14.2); RDW Standard Deviation 42.5 fL (35.1-46.3); Red Blood Cell Count 4.04 M/mm3 (4.30-5.90)
[2021-09-28 06:09] LABS: Anion Gap 6 mmol/L (6-16); Blood Urea Nitrogen 18 mg/dL (8-24); Bun/Creatinine Ratio 21.5 (12.0-20.0); CO2, Blood 28 mmol/L (21-32); Calcium, Blood 8.5 mg/dL (8.5-10.1); Chloride, Blood 101 mmol/L (98-108); Creatinine, Blood 0.84 mg/dL (0.60-1.20); Glomerular Filtration Rate >60 (60-); Glucose, Blood 306 mg/dL (70-99); Potassium, Blood 4.3 mmol/L (3.5-5.5); Sodium, Blood 135 mmol/L (136-145)
--- NOTE | 2021-09-28 06:46 | NUR ---
SHIFT SUMMARY ASSUMED CARE AT 1900. NO ACUTE EVENTS DURING SHIFT. PT REMAINS CINFUSED AND DISORIENTED. RESTRAINT ORDERS RENEWED AT 2020 LAST NIGHT WITH THE ADDITION OF BILATERAL SOFT WRIST RESTRAINTS TO PREVENT PT FROM PULLING OUT IV TO RIGHT FOREARM. PT RECEIVED ONE DOSE OF PRN HYDRALAZINE FOR SBP>160 WITH GOOD EFFECT. LLE (ANTERIOR LOWER LEFT LEFT WITH REDNESS, SWELLING, WARMTH AND TENDERNESS TO PALPATION. TURNED/REPOSITIONED. BED IN LOWEST POSITION WITH THE CALL LIGHT WITHIN EASY REACH-ALTHOUGH PT DOESNOT DEMONSTRATE THE UNDERSTANDING TO USE IT. BED ALARM REMAINS ACTIVATED. WILL CONTINUE TO MONITOR.
[2021-09-28 15:44] LABS: Influenza A, PCR NEGATIVE (NEGATIVE); Influenza B, PCR NEGATIVE (NEGATIVE); Resp Syncytial Virus, PCR NEGATIVE (NEGATIVE); SARS-Cov-2 (COVID-19) PCR, MMC NEGATIVE (NEGATIVE)
--- NOTE | 2021-09-28 17:10 | NUR ---
SHIFT SUMMARY PT IS ALERT AND DISORIENTED. CONFUSED, AND UNABLE TO FOLLOW DIRECTIONS FROM STAFF. PT MUMBLES WORDS WHEN TALKING. NO S/S OF ANY DISTRESS OR ANY DISCOMFORT THIS SHIFT. PT IS INCONTINENT OF B&B. PT ABLE TO TOLERATE MEDICATIONS WHEN CRUSHED IN APPLESAUCE. PT CONSULTED BY DR. PATRICIO THIS SHIFT, POSSIBLE SURGERY THIS EVENING. PT NPO ORDERED. BED AT LOWEST POSITION W/ ALARM ON, PT REMAINS ON SOFT WRIST AND KALYAN VEST RESTRAINT FOR SAFETY. CALL LIGHT WITHIN REACH.
--- NOTE | 2021-09-28 18:27 | NUR ---
PHONE CALL TO DAUGHTER ATTEMPTED TO CONTACT PATIENT'S DAUGHTER LISTED ON PATIENT'S FACESHEET, UNABLE TO REACH. AWAITING CALL BACK. PHONE CALL TO OJ'S ASSISTED TO CHECK IF PATIENT HAS AN ASSIGNED GUARDAN, SPOKE TO MARJORIE, ASSISTED STAFF, SHE VERBALIZED THAT SHE WILL CONTACT HER SOFTWARE RELEASE MANAGER FOR MORE INFORMATION. AWAITING CALL BACK.
--- NOTE | 2021-09-28 18:45 | NUR ---
SPOKE TO LEGAL GUARDIAN SPOKE TO PATIENT'S LEGAL GUARDIAN KAUSHIK NAVAS (VERIFIED BY OJ SIDHU CONTROL ROOM TECHNICIAN). VERBALIZED CONSENT FOR BLOOD TRANSFUSION. NOTIFIED LEGAL GUARDIAN IN REGARDS TO EXPECTING PHONE CALL FROM OR STAFF IN REGARDS TO SCHEDULED PROCEDURE.
--- NOTE | 2021-09-28 20:35 | NUR ---
ASSUMED CARE OF PT AT 1900. PT ON THE SCHEDULE TO HAVE AN IRRIGATION AND DEBRIDEMENT OF LLE CELLULITIS/ABSCESS. PT HAS BEEN NPO SINCE THIS MORNING PER SHIFT REPORT. MORNING NURSE ONLY COMPLETED THE BLOOD CONSENT WITH PT'S LEGAL GUARDIAN AND IT WAS WITNESSED BY ANOTHER NURSE. SIGNED BLOOD CONSENT IS IN PT'S CHART. PT CONFUSED AND RESTLESS. REMAINS IN RESTRAINTS, RENEWAL ORDERS RECEIVED BY HOSPITALIST. AT 2027, KENDY HER FROM OR ARRIVED ALONG WITH ONE MORE OR PERSONNEL TO TRANSPORT PT VIA BED TO HAVE PROCEDURE. I GAVE KENDY HER REPORT REGARDING PATIENT. DISCUSSED THE PENDING CONSENT FOR PROCEDURE THAT WAS NEEDED-SHE STATED THAT THE LEGAL GUARDIAN WAS ALREADY CALLED AND GAVE CONSENT FOR I&D. I SHOWED HER THE SIGNED BLOOD CONSENT. ALSO REPORTED THAT PT'S BP WAS ELEVATED, SBP >180 AND ASKED IF SHE WANTED ME TO GET ORDERS FOR IV HYDRALAZINE SINCE PT IS NPO AND ONLY HAS PO HYDRALAZINE ORDERED. SHE DECLINED AND STATED THAT SHE WOULD HAVE THE BP ADDRESSED DOWNSTAIRS WHILE IN OR. PT LEFT FLOOR VIA BED AT 2031.
--- NOTE | 2021-09-28 22:48 | NUR ---
AT 2241, RECEIVED REPORT FROM DIONICIO IN RECOVERY ROOM. HE CLARIFIED THAT CONSENT FOR THE PROCEDURE WAS GIVEN BY [T'S DAUGHTER, FRANCHESCA, NOT JENNIFER LEGAL GUARDIAN KAUSHIK NAVAS. PER REPORT, PT TOLERATED PROCEDURE WELL, CURRENTLY SLEEPING. BP 182/78, HR IN THE 70s, O2 SAT 98% ON O2 AT 3LPM. +C/M/S TO TOES ON LEFT FOOT. CAPILLARY REFILLS WITHIN 2-3 SECONDS. AWAITING PT RETURN TO ROOM 308
--- NOTE | 2021-09-28 23:21 | NUR ---
PT RETURED VIA BED FROM RECOVERY ROOM ACCOMANIED BY LUIS RN AT ABOUT 2256. PT REMAINS ON O2 3LPM VIA NC. PT ARRIVED WITH R WRIST RESTRAINT FASTENED BUT LEFT WRIST UNFASTENED; RIGHT KALYAN VEST STRAP UNFASTENED AND LEFTY KALYAN STRAP REMAINED FASTENED; ALL 4 SIDE RAILS RAISED. PT INITALLY WAS COMPLETELY CALM UPON ARRIVAL BUT NOW HAVING MILD RESTLESS INTERMITTENTLY. LLE CALF TO DISTAL FOOT WITH ELDON WRAP DRESSING. TOES TO LEFT FOOT EXPOSED. CAP REFILL 2 SECONDS, +C/M/S. R CALF WITH SCD SLEEVE. BED IN LOW POSITION WITH CALL LIGHT WITHIN REACH AND BED ALARM ACTIVATED. PT REMAINS CONFUSED. WILL CONTINUE TO MONITOR AND COMPLETE POST-OP VITALS PER PROTOCOL EXPLAINED BY CHARGE NURSE.
--- NOTE | 2021-09-29 03:03 | NUR ---
PT WITH PERSISTANT ELEVATED BP, DESPITE RECEIVING PRN HYDRALAZINE. HOSPITALIST NOTIFIED. NEW ORDERS RECEIVED.
[2021-09-29 05:11] LABS: BASOPHILS PERCENT AUTO 1 % (0-2); EOSINOPHILS ABSOLUTE AUTO 0.16 K/mm3 (0.00-0.68); EOSINOPHILS PERCENT AUTO 2 % (0-6); Hematocrit 38.5 % (37.0-53.0); Hemoglobin 11.5 g/dL (13.5-17.5); IMMATURE GRAN ABSOLUTE AUTO 0.04 K/mm3 (0.00-0.10); IMMATURE GRAN PERCENT AUTO 0 % (0-1); LYMPHOCYTES ABSOLUTE AUTO 1.36 K/mm3 (0.84-5.20); LYMPHOCYTES PERCENT AUTO 15 % (21-46); MONOCYTES ABSOLUTE AUTO 1.01 K/mm3 (0.16-1.47); MONOCYTES PERCENT AUTO 11 % (4-13); Mean Corpuscular HGB 29.3 pg (26.0-34.0); Mean Corpuscular HGB Conc 29.9 g/dL (31.5-36.5); Mean Corpuscular Volume 98 fL (80-100); Mean Platelet Volume 11.5 fL (9.1-12.4); NEUTROPHILS ABSOLUTE AUTO 6.37 K/mm3 (1.96-9.15); NEUTROPHILS PERCENT AUTO 71 % (41-73); Platelet Count 240 K/mm3 (150-400); RDW Coefficient Variation 12.9 % (11.7-14.2); RDW Standard Deviation 46.3 fL (35.1-46.3); Red Blood Cell Count 3.92 M/mm3 (4.30-5.90); White Blood Cell Count 9.04 K/mm3 (4.00-11.30)
--- NOTE | 2021-09-29 06:16 | NUR ---
SHIFT SUMMARY PT RETURNED FROM THE OR RECOVERY ROOM AT 2256. PT WITH SBP >160 CONSISTENTLY DESPITE RECEIVING PRN HYDRALAZINE. HOSPITALIST NOTIFIED AND NEW MEDICATION ORDERS WERE RECEIVED AND CARRIED OUT. BP STILL ELEVATED. NOTIFIED PROVIDER, NO NEW ORDERS. PT ONLY IN BILATERAL SOFT WRIST RESTRAINTS AND HAS 4 SIDE RAILS RAISED. KALYAN VEST UNFASTENED BECAUSE PT HAS NOT TRIED TO GET OOB SINCR RETURNING FROM HAVING I&D. LEFT CALF TO LEFT FOOT WITH ELDON WRAP DRESSING, TOSE EXPOSED AND ABLE TO PLAPATE PULSE UNDER DRESSING. +COLOR/MOVEMENT/SENSATION. CAPILLARY REFILLS WITHIN 2-3 SECONDS. LLE EVELATED ON PILLOW. RLE WITH SCD. RFA IV PATENT. IV ANTIBIOTICS ADMINISTERED ORDERED. PT REMAINS ON ASPIRATION AND DYSPHAGIA PRECAUTIONS. BED IN LOWEST POSITION WITH CALL LIGHT WITHIN EASY REACH AND BED ALARM ACTIVATED. WILL CONTINUE TO MONITOR.
[2021-09-29 06:42] LABS: Anion Gap 8 mmol/L (6-16); Blood Urea Nitrogen 15 mg/dL (8-24); Bun/Creatinine Ratio 17.4 (12.0-20.0); CO2, Blood 27 mmol/L (21-32); Calcium, Blood 8.2 mg/dL (8.5-10.1); Chloride, Blood 101 mmol/L (98-108); Creatinine, Blood 0.86 mg/dL (0.60-1.20); Glomerular Filtration Rate >60 (60-); Glucose, Blood 268 mg/dL (70-99); Potassium, Blood 4.3 mmol/L (3.5-5.5); Sodium, Blood 136 mmol/L (136-145)
--- NOTE | 2021-09-29 08:00 | NUR ---
pt laying in bed, very sleepy this am, pt confused, oriented to self only, unable to participate in assessment, currently on 2 liters 02 via n/c, not normally a home o2 user, lungs are clear dim t/o, resp even and unlabored, no cough noted, hrr, edema noted to right elbow and b/l le, ppp+2, cap refill <3sec, vs stable, afebile, iv site to rfa, 20g, site is clear and patent, flushes well, but does not draw back, btx4, abd flat soft nontender, incont of urine and stool, attends in place, is total care, stiff to turn, skin has red left lower ext, with dressing in place, some swelling noted, he had an I&D yesterday. moves upper ext, edel, call light in reach.
--- NOTE | 2021-09-29 18:43 | NUR ---
pt has been out of restraints since noon. has been calm and resting quietly. new iv placed to lfa, iv to rfa removed intact due to infiltrate, no further changes this shift, Dr. Cazares was by to see him, he will change dressings tomorrow, updated Chantells. call light in reach, music playing for pt.
[2021-09-30 01:04] LABS: Anion Gap 6 mmol/L (6-16); Blood Urea Nitrogen 17 mg/dL (8-24); Bun/Creatinine Ratio 17.4 (12.0-20.0); CO2, Blood 29 mmol/L (21-32); Calcium, Blood 8.5 mg/dL (8.5-10.1); Chloride, Blood 100 mmol/L (98-108); Creatinine, Blood 0.98 mg/dL (0.60-1.20); Glomerular Filtration Rate >60 (60-); Glucose, Blood 317 mg/dL (70-99); Potassium, Blood 4.3 mmol/L (3.5-5.5); Sodium, Blood 135 mmol/L (136-145); Vancomycin, Trough 11.4 ug/mL (5.0-10.0)
--- NOTE | 2021-09-30 06:17 | NUR ---
SHIFT SUMMARY ASSUMED CARE AT 1900. PT STARTED OFF THE SHIFT UNRESTRAINED. PT BECAME RESTLESS AND AGITATED, PULLED OUT IV, AND CONTINUOUSLY TRIED GETTING OOB. HOSPITALIST WAS NOTIFIED AFTER SEVERAL ATTEMPTS TO DE-REDIRECT PT WAS UNSUCCESSFUL. ORDERS RECEIVED AT 2127 FOR RESTRAINTS AND PRN MEDICATION FOR AGITATION. ORDERS CARRIED OUT. PRN HALDOL HAD SHORT LASTING EFFECT. NEW IV TO RIGHT UPPER ARM IS CONCEALED. LLE DRESSING INTACT, DP PULSE PALPABLE, +C/M/S TO TOES; CAPILLARY REILLS WITHIN 2-3 SECONDS. RLE WITH SCD. PT RESTLESS AND AGITATED, DISROBING AND PULLING AT RESTRAINTS HE IS TRYING TO GET OOB AGAIN, BEHAVIORS STARTED PRIOR TO MEXT AVAILABLE DOSE OF PRN HALDOL WHICH IS IS AVAILABLE Q6H. BED IS IN LOW POSITION WITH THE CALL LIGHT WITHIN EASY REACH AND BED ALARM REMAINS ACTIVATED.
--- NOTE | 2021-09-30 07:15 | NUR ---
ONCOMING NURSE ASKED TO FOLLOW UP WITH HOSPITALIST REGARDING HIGH GLUCOSE LEVELS IN BMP
--- NOTE | 2021-09-30 17:01 | NUR ---
SHIFT SUMMARY 85 Y MALE ADMITTED WITH ACUTE ENCEPHALOPATHY AND LLE CELLULITIS, S/P I&D. DR PATRICIO IN TODAY AND DRSG CHANGE COMPLETED. PT DID APPEAR TO HAVE MOD DISCOMFORT WITH DRSG CHANGE, PT MEDICATED PER EMAR. PT REMAINED IN KALYAN VEST, SOFT WRIST AND 4 RAIL RESTRAINTS FOR PT SAFETY AND TO PROTECT LINES. PT VERY RESTLESS AND PULLING AT ATTENDS AND LINES WHEN UNRESTRAINED. PLANS FOR PT TO D/C BACK HOME TO [facility] WHEN MEDICALLY STABLE FOR D/C. NO OTHER CHANGES THIS SHIFT.
--- NOTE | 2021-10-01 06:35 | NUR ---
SHIFT SUMMARY ASSUMED CARE AT 190. PT ON CONTACT ISOLATION DUE TO +ESBL AND E.COLI FOUND IN LLE WOUND CULTURE. PT AAOX1. REMAINS CONFUSED, IMPULSIVE WITH EPISODES OF RESTLESS AND AGITATION WHEN HE IS NOT EASILY REDIRECTED. PT REMAINS IN RESTRAINTS, ORDER RENEWED AT 2127. LAST CBG WAS 180 MG/DL, MEDICATED PER EMAR. IV SITE BENIGN. LLE DRESSING WAS RE-WRAPPED A FEW TIMES THIS SHIFT DUE TO PT PULLING AT DRESSING AND UNRAVELING ELDON WRAP BANDAGE. PT MEDICATED FOR PAIN ONCE DURING SHIFT, ICE PACKS PLACED ON LLE INTERMITTENTLY X 20 MINUTES EACH TIME ORDERED WITH NO CHNAGE IN BEHAVIORS. RLE SCD IN PLACE. PT RECENTLY MEDICATED WITH PRN AGITATION MEDICATION DUE TO DISROBING, PULLING AT LLE DRESSING, TRYING TO GET OOB. BED IN LOWEST POSITION WITH THE BED ALARM ACTIVATED.
--- NOTE | 2021-10-01 18:00 | NUR ---
SHIFT SUMMARY 85 Y MALE ADMITTED WITH ACUTE ENCEPHALOPATHY. PT S/P I&D TO LLE AND IN CONTACT ISO FOR ESBL IN WOUND. PT REMAINED CONFUSED TODAY. PT WAS MOSTLY SOMNLENT T/O BUT CONT TO BE RESTLESS IN BED, PULLING AT ATTENDS, LLE DRSG AND PULLED OUT IV WHEN WRIST RESTRAINT REMOVED FOR PERSONAL CARE. PT NOT ABLE TO FOLLOW COMMANDS OR COOPERATE MUCH WITH CARE AND HAS BEEN MOSTLY NON-VERBAL. NEW DEBI POWER GLIDE PLACED AND SECURE. NO OTHER CHANGES TO REPORT
--- NOTE | 2021-10-02 06:15 | NUR ---
SHIFT SUMMARY ASSUMED CARE AT 1900. PT REMAINS IN CONTACT ISOLATION FOR ESBL AND E.COLI IN LLE WOUND. REMAINS IN RESTRAINTS. CONFUSED, IMPULSIVE WITH PERIODIC EPISODES OF RESTLESSNESS AND AGITATION. PT MEDICATED FOR PAIN ONCE DURING SHIFT AND ICE PACKS PLACED ON LLE IN 20 MINUTE INCREMENTS. PT MEDICATED TWICE WITH PRN HYDRALAZINE DUE TO SBP GREATER THAN 160. PT MEDICATED ONCE FOR AGITATION WITH PRN HALDOL PER EMAR. CBG LAST NIGHT:205MG/DL. LUE POWERGLIDE IN PLACE, + BLOOD RETURN AND DRESSING INTACT; ALSO CONCEALED SO PT DOES NOT ATTEMPT TO PULL IT OUT LIKE HE DID HIS PREVIOUS IV ACCESSES. MORNING LABS DRAWN AT 0545. ATTENDS CHANGED, PT TURNED AND REPOSITIONED. LLE DRESSING CLEAN, DRY AND INTACT. BED IS IN LOW POSITION, 4 SIDE RAILS RAISED, CALL LIGHT WITHIN REACH AND BED ALARM ACTIVATED. WILL CONTINUE TO MONITOR.
[2021-10-02 06:27] LABS: BASOPHILS ABSOLUTE AUTO 0.11 K/mm3 (0.00-0.23); BASOPHILS PERCENT AUTO 2 % (0-2); EOSINOPHILS ABSOLUTE AUTO 0.22 K/mm3 (0.00-0.68); EOSINOPHILS PERCENT AUTO 3 % (0-6); Hematocrit 36.4 % (37.0-53.0); IMMATURE GRAN ABSOLUTE AUTO 0.02 K/mm3 (0.00-0.10); IMMATURE GRAN PERCENT AUTO 0 % (0-1); LYMPHOCYTES ABSOLUTE AUTO 1.72 K/mm3 (0.84-5.20); LYMPHOCYTES PERCENT AUTO 25 % (21-46); MONOCYTES ABSOLUTE AUTO 0.84 K/mm3 (0.16-1.47); MONOCYTES PERCENT AUTO 12 % (4-13); Mean Corpuscular HGB 29.4 pg (26.0-34.0); Mean Corpuscular Volume 89 fL (80-100); NEUTROPHILS ABSOLUTE AUTO 4.12 K/mm3 (1.96-9.15); NEUTROPHILS PERCENT AUTO 59 % (41-73); Platelet Count 206 K/mm3 (150-400); RDW Coefficient Variation 12.8 % (11.7-14.2); RDW Standard Deviation 41.6 fL (35.1-46.3); Red Blood Cell Count 4.08 M/mm3 (4.30-5.90); White Blood Cell Count 7.03 K/mm3 (4.00-11.30)
[2021-10-02 06:28] LABS: Mean Platelet Volume 13.3 fL (9.1-12.4)
[2021-10-02 07:07] LABS: Anion Gap 3 mmol/L (6-16); Blood Urea Nitrogen 8 mg/dL (8-24); Bun/Creatinine Ratio 11.1 (12.0-20.0); CO2, Blood 32 mmol/L (21-32); Calcium, Blood 8.5 mg/dL (8.5-10.1); Chloride, Blood 101 mmol/L (98-108); Creatinine, Blood 0.72 mg/dL (0.60-1.20); Glomerular Filtration Rate >60 (60-); Glucose, Blood 148 mg/dL (70-99); Potassium, Blood 5.6 mmol/L (3.5-5.5); Sodium, Blood 136 mmol/L (136-145)
--- NOTE | 2021-10-02 17:00 | NUR ---
SHIFT SUMMARY PATIENT SHOWS NO SIGN OF PAIN, NAUSEA, AND SHORTNESS OF BREATH. PATIENT IS ON BEDREST. PATIENT IS STILL RESTRAINED WITH A KALYAN VEST, BILAT SOFT WRIST, AND FOUR SIDE RAILS. PATIENT TOLERATING WELL. PATIENT IS STILL A&O TO SELF. PATIENT MUMBLES INCOHERENTLY, BUT DOES NOT SAY MANY WORDS. CHANGED DRESSINGS ON WOUND TO LEFT LEG. PATIENT IS EATING AND DRINKING WELL. PATIENT IS PLEASANT AND COOPERATIVE WITH CARE.
--- NOTE | 2021-10-03 04:11 | NUR ---
SHIFT SUMMARY: A&OX1, CONFUSION, DIFFIUCLT TO REDIRECT, AGITATED, PULLING AT LINES, UNWRAPPED LLE DRESSING, GRABS AT STAFF WHEN PROVIFING CARE. RESTRAINTS REMAIN IN PLACE FOR STAFF AND PATIENT SAFETY. WOUND TO LLE REDRESSED AND WRAPPED WITH ELDNO BANDAGE. NO ADVENTITIOUS HEART SOUNDS, TRACE EDEMA TO BLE, LCTA WITH DIMINISHED BASES.
[2021-10-03 05:29] LABS: BASOPHILS ABSOLUTE AUTO 0.08 K/mm3 (0.00-0.23); BASOPHILS PERCENT AUTO 1 % (0-2); EOSINOPHILS ABSOLUTE AUTO 0.11 K/mm3 (0.00-0.68); EOSINOPHILS PERCENT AUTO 2 % (0-6); Hematocrit 36.1 % (37.0-53.0); Hemoglobin 11.6 g/dL (13.5-17.5); IMMATURE GRAN ABSOLUTE AUTO 0.02 K/mm3 (0.00-0.10); IMMATURE GRAN PERCENT AUTO 0 % (0-1); LYMPHOCYTES ABSOLUTE AUTO 1.61 K/mm3 (0.84-5.20); LYMPHOCYTES PERCENT AUTO 24 % (21-46); MONOCYTES ABSOLUTE AUTO 0.84 K/mm3 (0.16-1.47); MONOCYTES PERCENT AUTO 12 % (4-13); Mean Corpuscular HGB 28.6 pg (26.0-34.0); Mean Corpuscular HGB Conc 32.1 g/dL (31.5-36.5); Mean Corpuscular Volume 89 fL (80-100); NEUTROPHILS ABSOLUTE AUTO 4.16 K/mm3 (1.96-9.15); NEUTROPHILS PERCENT AUTO 61 % (41-73); Platelet Count 301 K/mm3 (150-400); RDW Coefficient Variation 12.7 % (11.7-14.2); RDW Standard Deviation 41.7 fL (35.1-46.3); Red Blood Cell Count 4.05 M/mm3 (4.30-5.90); White Blood Cell Count 6.82 K/mm3 (4.00-11.30)
[2021-10-03 06:00] LABS: Anion Gap 5 mmol/L (6-16); Blood Urea Nitrogen 9 mg/dL (8-24); Bun/Creatinine Ratio 10.7 (12.0-20.0); CO2, Blood 32 mmol/L (21-32); Calcium, Blood 8.8 mg/dL (8.5-10.1); Chloride, Blood 101 mmol/L (98-108); Creatinine, Blood 0.85 mg/dL (0.60-1.20); Glomerular Filtration Rate >60 (60-); Glucose, Blood 132 mg/dL (70-99); Potassium, Blood 3.9 mmol/L (3.5-5.5); Sodium, Blood 138 mmol/L (136-145)
--- NOTE | 2021-10-03 18:17 | NUR ---
SHIFT SUMMARY PATIENT SHOWS NO SIGN OF PAIN, NAUSEA, AND SHORTNESS OF BREATH. PATIENT IS STILL IN RESTRAINTS. PATIENT PULLING AT IV AND DRESSING TO LEFT LEG. PATIENT IS ORIENTED TO SELF AND OCCASIONALLY VERBALIZES. PATIENT HAS NOT BEEN OUT OF BED DUE TO WEAKNESS. DRESSING CHANGE DONE. PATIENT IS EATING AND DRINKING WELL. PATIENT IS COOPERATIVE WITH CARE.
--- NOTE | 2021-10-04 03:18 | NUR ---
SHIFT SUMMARY: A&OX1, NO ADVENTIIOUS HEART SOUNDS, TRACE EDEMA TO BLE, LCTA E/U RESP, DIMINISHED BASES. INCONT OF BOWEL AND BLADDER FREQUENT BREIF CHECKS. L LEG WOUND, PATIENT REMOVED DRESISNG AND PACKING TONIGHT. REPACKED AND DRESSED PER ORDER. REDENESS TO GROIN AND SCROTUM POWDER APPLIED. REDNESS TO COCCYX, Q2 REPOSITIONING INITIATED. REMAINED IN KALYAN AND BILATERAL RESTRAINTS DUE TO PATIENT CONTITOUSLY PICKING AT DRESSING/WOUND, PULLING AT IV, REMOVING ATTENDS, AND ATTEMPTING TO GET OOB.
--- NOTE | 2021-10-04 18:34 | NUR ---
SHIFT SUMMARY PT IS GENERALIZED CONFUSION AND DROWSINESS DURING DAY SHIFT. ONCE AWAKEN IS DOES SPEAK BUT NOT AWARE OF SURROUNDINGS. AAOX1 ONLY. UNABLE TO BE REORIENTED TO PLACE OR TIME. HAS POOR APPETITE AND DECLINE MEALS. ATE ONLY SMALL AMOUNTS. WAS NOT SEEN BY OT OR PT. CARSON KILGORE SEEN AT BEDSIDE AND CHANGED DRESSING TO LLE AND ORDERS PLACED FOR QD CHANGE. BP HAS BEEN ELEVATED ALL DAY AND DID RECEIVE IV PRN MEDS AND DR NOTIFIED. NAD NOTED. NO C/O OR S/SX OF PAIN, N/V, OR SOB. BM X 2 SMALL TODAY. WILL CONTINUE TO MONITOR IN CARE
--- NOTE | 2021-10-05 04:55 | NUR ---
SHIFT SUMMARY PT IS AWAKE AND ALERT TO HIMSELF .PT FOLLOWS COMMAND, FORGETFUL BUT EASYKY REDIRECTED. ALL MEDS WERE GIVEN PER EMAR . PT REMAINS ON KALYAN AND WRIST RESTRAINTS. PT'S BP WAS ELEVATED EVEN AFTER GIVEN HYDRALAZINE PO. MD WAS NOTIFIED AND IV HYDRALAZINE WAS ORDERED AND GIVEN. BP RECHECK, WAS STILL HIGH. PT SEEMED TENSE AND IN PAIN. PAIN MED WAS GIVEN. WILL RECHECK BP. PT WAS REPOSITIONNED AND CHANGED NEEDED. BED IN LOWER POSITION AND CALL LIGHT IN REACH.WILL CONTINUE TO MONITOR.
[2021-10-05 05:05] LABS: BASOPHILS ABSOLUTE AUTO 0.08 K/mm3 (0.00-0.23); BASOPHILS PERCENT AUTO 1 % (0-2); EOSINOPHILS ABSOLUTE AUTO 0.14 K/mm3 (0.00-0.68); EOSINOPHILS PERCENT AUTO 2 % (0-6); Hematocrit 40.8 % (37.0-53.0); Hemoglobin 13.3 g/dL (13.5-17.5); IMMATURE GRAN ABSOLUTE AUTO 0.03 K/mm3 (0.00-0.10); IMMATURE GRAN PERCENT AUTO 0 % (0-1); LYMPHOCYTES ABSOLUTE AUTO 1.98 K/mm3 (0.84-5.20); LYMPHOCYTES PERCENT AUTO 28 % (21-46); MONOCYTES ABSOLUTE AUTO 1.11 K/mm3 (0.16-1.47); MONOCYTES PERCENT AUTO 16 % (4-13); Mean Corpuscular HGB 28.4 pg (26.0-34.0); Mean Corpuscular HGB Conc 32.6 g/dL (31.5-36.5); Mean Corpuscular Volume 87 fL (80-100); Mean Platelet Volume 12.1 fL (9.1-12.4); NEUTROPHILS ABSOLUTE AUTO 3.63 K/mm3 (1.96-9.15); NEUTROPHILS PERCENT AUTO 52 % (41-73); Platelet Count 304 K/mm3 (150-400); RDW Coefficient Variation 12.9 % (11.7-14.2); RDW Standard Deviation 40.9 fL (35.1-46.3); Red Blood Cell Count 4.68 M/mm3 (4.30-5.90); White Blood Cell Count 6.97 K/mm3 (4.00-11.30)
[2021-10-05 05:39] LABS: Albumin, Blood 2.3 g/dL (3.4-5.0); Anion Gap 6 mmol/L (6-16); Blood Urea Nitrogen 10 mg/dL (8-24); Bun/Creatinine Ratio 12.6 (12.0-20.0); CO2, Blood 27 mmol/L (21-32); Calcium, Blood 8.3 mg/dL (8.5-10.1); Chloride, Blood 106 mmol/L (98-108); Glomerular Filtration Rate >60 (60-); Glucose, Blood 163 mg/dL (70-99); Phosphorus, Blood 2.7 mg/dL (2.5-4.9); Potassium, Blood 4.2 mmol/L (3.5-5.5); Sodium, Blood 139 mmol/L (136-145)
--- NOTE | 2021-10-05 17:15 | NUR ---
SHIFT SUMMARY PT IS AAOX1 ONLY. UNAWARE OF PLACE OR TIME. DOES NOT SAY FULL NAME. HE IS VERY FORGETFUL AND UNABLE TO ANSWER QUESTIONS ASKED APPROPRIATLY. WORDS ARE GARBLED AND UNLEGABLE AT TIMES. DRESSING TO LLE CHANGED PER MD ORDERS AND CLEANED. FULL BED BATH GIVEN WITH ORAL CARE TODAY. ONLY SMALL AMOUNTS OF MEALS EATEN. MEDICATED FOR PAIN X 1 TODAY WITH NORCO. MEDS GIVEN CRUSED IN APPLESAUCE PER ORDERS. BP REMINS ELEVATED BUT DID RECEIVE NEW BP MED TODAY. NAD NOTED. NO C/O PAIN, N/V, OR SOB VOICED AT THIS TIME. REPORT GIVEN TO NEW NURSE TAKING OVER CARE AND TRANSFERED TO NEW ROOM OF 344 PER BED.
--- NOTE | 2021-10-05 18:45 | NUR ---
PT BROUGHT TO ROOM APPROX 1700 BY BED AND SETTLED IN. WAS REPORTING PT TO FOOT ON ARRIVAL BUT ONCE PAIN MEDS AVAILABLE PT SLEEPING AND WHEN AWOKEN DENIED PAIN. DAUGHTER IN TO VISIT FOR A SHORT TIME. SLEEPING WHEN NOT BEING DISTURBED.
[2021-10-06 05:54] LABS: BASOPHILS ABSOLUTE AUTO 0.13 K/mm3 (0.00-0.23); BASOPHILS PERCENT AUTO 2 % (0-2); EOSINOPHILS ABSOLUTE AUTO 0.39 K/mm3 (0.00-0.68); EOSINOPHILS PERCENT AUTO 6 % (0-6); Hematocrit 41.6 % (37.0-53.0); Hemoglobin 13.4 g/dL (13.5-17.5); IMMATURE GRAN ABSOLUTE AUTO 0.02 K/mm3 (0.00-0.10); IMMATURE GRAN PERCENT AUTO 0 % (0-1); LYMPHOCYTES ABSOLUTE AUTO 1.85 K/mm3 (0.84-5.20); LYMPHOCYTES PERCENT AUTO 29 % (21-46); MONOCYTES ABSOLUTE AUTO 0.97 K/mm3 (0.16-1.47); MONOCYTES PERCENT AUTO 15 % (4-13); Mean Corpuscular HGB 28.6 pg (26.0-34.0); Mean Corpuscular HGB Conc 32.2 g/dL (31.5-36.5); Mean Corpuscular Volume 89 fL (80-100); Mean Platelet Volume 11.7 fL (9.1-12.4); NEUTROPHILS ABSOLUTE AUTO 2.99 K/mm3 (1.96-9.15); NEUTROPHILS PERCENT AUTO 47 % (41-73); Platelet Count 289 K/mm3 (150-400); RDW Coefficient Variation 12.9 % (11.7-14.2); RDW Standard Deviation 41.9 fL (35.1-46.3); Red Blood Cell Count 4.69 M/mm3 (4.30-5.90); White Blood Cell Count 6.35 K/mm3 (4.00-11.30)
--- NOTE | 2021-10-06 06:00 | NUR ---
PHLEBOTOMY SUPPORT TECH SUMMARY PT IS ALERT AND ORIENTED TO SELF ONLY. HE HAS BEEN TRYING TO CLIMB OUT OF BED SAYING "I NEED TO GO HOME". FOUR RAILS PUT UP AT THE START OF SHIFT. PT IS REDIRECTABLE AND SEEMS TO CALM WHEN TUCKED IN WITH A WARM BLANKET. PT RECEIVED ONE DOSE OF IV ABX. MEDICATED FOR PAIN X1. COOPERATIVE WITH CARE. MUMBLING SPEECH AND PT IS NOT REORIENTABLE.
[2021-10-06 06:10] LABS: Albumin, Blood 2.7 g/dL (3.4-5.0); Anion Gap 3 mmol/L (6-16); Blood Urea Nitrogen 14 mg/dL (8-24); Bun/Creatinine Ratio 14.8 (12.0-20.0); CO2, Blood 32 mmol/L (21-32); Chloride, Blood 104 mmol/L (98-108); Creatinine, Blood 0.95 mg/dL (0.60-1.20); Glomerular Filtration Rate >60 (60-); Glucose, Blood 133 mg/dL (70-99); Phosphorus, Blood 2.8 mg/dL (2.5-4.9); Potassium, Blood 3.9 mmol/L (3.5-5.5); Sodium, Blood 139 mmol/L (136-145)
--- NOTE | 2021-10-06 18:25 | NUR ---
SHIFT SUMMARY PT DOZING ON AND OFF TODAY. MORE RESTLESS WHEN WET AND ATTEMPTING TO CLIMB OOB OTHERWISE LEAVING LLE DRESSING ALONE WELL PG. DAUGHTER AT BEDSIDE THIS EVENING FOR SHORT TIME. MEDICATED FOR LLE DISCOMFORT TWICE TO PREVENT DISCOMFORT FROM INCREASING. EATING WITH ASSISTANCE.
--- NOTE | 2021-10-07 04:52 | NUR ---
SHIFT SUMMARY NO ACUTE CHANGES TO REPORT THIS SHIFT, PT HAS RESTED MOST OF THE NIGHT. PT WAS SOMEHWAT RESTLESS AT THE START OF THE SHIFT AND SWINGING HIS LEGS OFF THE SIGN OF THE BED. I ASKED PT ABOUT PAIN AND HE ANSWER YES WHEN I ASKED HIM IF HE HAD PAIN. MEDICATED FOR PAIN AND HE RESTED COMFORTABTLY T/O SHIFT. PT HAS BEEN VOIDING WITHOUT DIFFICULTY. VITALS STABLE. BED IN LOWEST POSITION, CALL LIGHT WITHIN REACH.
[2021-10-07 05:55] LABS: Hematocrit 42.6 % (37.0-53.0); Hemoglobin 13.7 g/dL (13.5-17.5)
[2021-10-07 06:50] LABS: Albumin, Blood 2.8 g/dL (3.4-5.0); Anion Gap 7 mmol/L (6-16); Blood Urea Nitrogen 13 mg/dL (8-24); Bun/Creatinine Ratio 13.7 (12.0-20.0); CO2, Blood 32 mmol/L (21-32); Calcium, Blood 9.2 mg/dL (8.5-10.1); Chloride, Blood 100 mmol/L (98-108); Creatinine, Blood 0.95 mg/dL (0.60-1.20); Glomerular Filtration Rate >60 (60-); Glucose, Blood 153 mg/dL (70-99); Phosphorus, Blood 2.8 mg/dL (2.5-4.9); Potassium, Blood 4.1 mmol/L (3.5-5.5); Sodium, Blood 139 mmol/L (136-145)
--- NOTE | 2021-10-07 18:24 | NUR ---
SHIFT SUMMARY 85 Y MALE ADMITTED WITH ACUTE ENCEPHALOPATHY. PT S/P I&D TO LLE AND IN CONTACT ISO FOR ESBL IN WOUND. PT A&O x1-2, PLEASANT AND COOPERATIVE WITH CARE. PT WAS ABLE TO ANSWER SIMPLE QUESTIONS AND FOLLOW DIRECTIONS, ST IN TO REVAL PT AND UPGRAD PT DIET. PT HAS BEEN IND WITH EATING WITH SET UP AND SUPERVISION TODAY. WOUND CARE COMPLETED TODAY PER DR ORDERS AND PT TOLERATED WELL BUT DID HAVE SOME NONVERBAL S/S OF PAIN AND WAS MEDICATED PER EMAR. PTS DAUGHTER IN TO VISIT AND SAT AT BEDSIDE TALKING FOR A FEW HOURS. NO OTHER CHANGES TO REPORT THIS SHIFT.
--- NOTE | 2021-10-08 03:56 | NUR ---
SHIFT SUMMARY ADMITTED FOR ACUTE ENCEPHALOPATHY. DNR CODE. CONTACT PRECAUTIONS FOR ESBL IN WOUND. CELLULITIS TO LLE. DAILY DRESSING CHANGES. PT IS IMPULSIVE AND FREQUENTLY TRIES TO EXIT BED THIS SHIFT. HE IS CONFUSED & RESTLESS THIS SHIFT. PRN PAIN MEDICATION GIVEN. BED ALARM IS ON. POWERGLIDE IN LUE. HE IS FROM [facility]. IV ANTIBIOTICS ARE SCHEDULED. I&D PERFORMED ON LLE ON 09/29/21. PLAN IS FOR PLACEMENT.
--- NOTE | 2021-10-08 10:22 | NUR ---
PT PLEASANT COOP A/O X1 BARELY TO SELF. ABLE TO TELL ME MONTH OF , NAME. DENIES PAIN, H/R REG, NO EDEMA NOTED. LUNGS CLEAR, RESP EASY, UNLABORED. ON R//A. BT X4 LAST BM PER PT YST. VOIDS INCONT. CHANGED AND IS NOW DRY. BED IN LOW POSITION, CALL LITE IN REACH, BED ALARM ON FOR SAFETY
--- NOTE | 2021-10-08 17:54 | NUR ---
pt pleasant today. is still confused. able to tell me name, julio c, that worked at [employer]. no c/o pain, did medicate recently just prior to wound change. he agreeable. no other concerns noted. does still attempt to get out of bed various times todya. bed alarm onfor safety, bed in low position, call lite in reach.
--- NOTE | 2021-10-08 18:20 | NUR ---
changed dressing on leg. ankle wound is small. repacked. latter on calf is much larger. repacked 3-4 feet fo 1/2 tape packing as per orders.. medicated for pain 1/2 hr earlier. pt hanna well. bed inl ow position, ca ll lite in reach, bed alarm on for sfaety
--- NOTE | 2021-10-08 21:33 | NUR ---
PT AGITATED PT REFUSING CARE. SAYING, "NO" TO CARE. UNABLE TO REDIRECT. PT REMOVED GOWN. ATTEMPTING TO EXIT BED CONTINUOUSLY. PRN AGITATION MEDICATION GIVEN PER EMAR. CHARGE INFORMED.
--- NOTE | 2021-10-08 22:33 | NUR ---
PT STATUS PT STILL AWAKE AND FREQUENTLY ATTEMPTING TO EXIT BED. I DID GIVE HIM PRN PAIN MEDICATION SOON IT WAS DUE, IN CASE HE HAS PAIN FROM HIS WOUND.
--- NOTE | 2021-10-09 04:09 | NUR ---
SHIFT SUMMARY 85 YR M ADMITTED ON 09/22/21 FOR SEVERE ENCEPHALOPATHY. DNR. PT IS IMPULSIVE AND CONTINUOUSLY TRIES TO GET OUT OF BED WHEN HE IS AWAKE. HE IS VERY CONFUSED. LEFT LEG WOUND- HAD I AND D ON 09/29/21. PURULENT POSITIVE FOR ESBL. BEING TX W/ ABX AND WILL DISCHARGE BACK TO REHAB FACILITY.
--- NOTE | 2021-10-09 10:02 | NUR ---
PT PLEASANT CONFUSED. ABLE TO TELL ME HIS NAME, , AND THAT HE HAD WORKED AT [employer]. DENIES BEING . DENIES PAIN. LEG IS WRAPPED, CDI AT THIS TIME. H/R REG, NO MURMER NOTED. NO TELE. LUNGS CLEAR, RESP EASY, UNLABORED. ON RA. BT X4 LAST BY YEST. VOIDS INCONT. ATTENDS CDI AT THIS TIME. REDNESS IN GROIN AREA NOTED. TREAT WITH MICANOZOLE POWDER. BED IN LOW POSITION, CALL LITE IN REACH, BED ALARM AND CAMERA ON FOR SAFETY
--- NOTE | 2021-10-09 11:40 | NUR ---
REVIEWED WITH DR MARCOS CBG OF [id number] AND PT EATING SOME LAST THIS LAST MEAL. NO NEW ORDERS
--- NOTE | 2021-10-09 16:08 | NUR ---
PT PLEASANT TODAY. CONTINUES TO BE CONFUSED, A/O TO SELF ONLY. NOT IMPULSIVE TODAY. NO C/O PAIN TODAY. SLEPT SOME TODAY. NO OTHER CONCERNS NOTED. BED IN LOW POSITION, CALL LITE IN REACH, BED ALARM ON FOR SAFETY
--- NOTE | 2021-10-10 04:30 | NUR ---
SHIFT SUMMARY 85 YR M ADMITTED ON 09/22/21 FOR ENCEPHALPATHY. DNR. PT HAD MOMENTS OF CONFUSION BUT SEEMED TO BE MORE COHERANT THAN THE NIGHT BEFORE. NO ACUTE CHANGES SINCE PREVIOUS SHIFT. DRESSING ON l LEG WOUMD CLEAN, DRY, AND INTACT SO IT WASN'T CHANGED THIS SHIFT. PLAN IS FOR PT TO GO BACK TO REHAB FACILITY ONCE HIS LEG WOUND HAS HEALED TO AN ACCEPTABLE LEVEL.
--- NOTE | 2021-10-10 12:30 | NUR ---
Received referral from nurse career based intervention coordinator (Ami Hoang) on 10/10/2021. Patient is to discharge 10/10/2021 back to [facility] [place] [facility] with orders for home health and elected [facility]. Contacted patient's daughter (Toya Núñez) and patient's facility ([facility]) to further discuss the above. Patient's daughter and facility are agreeable to the above. Gathered all supporting documentation for referral (face sheet, face to face, med list, H&P, and most recent PT assessment) and sent to [facility] for review. No further interventions required. Ana Stinson Referral Liaison
[2021-10-10] MEDS ORDERED: DOXA1 PO (14:01)
--- NOTE | 2021-10-10 16:36 | NUR ---
PT DISCHARGED THE PT WAS DISCHARGED TO [facility]. PTS LEFT LEG WOUND DRESSING WAS CHANGED PRIOR TO DC, THE PTS ORDERS WERE FAXED TO [facility]. H/H WAS SET UP PRIOR TO DC. THE PT WAS TRANSFERED VIA WHEELCHAIR ACCOMPANIED BY [employer]. PT APPEARED TO BE BREATHING EASILY ON RA
== END 2021-10-10 16:10 | disposition home or self-care (01) | DRG 602 ==
LOC: ER 10:53 → MEDS 16:29 → ENPENDDIS 10-10 12:04 → EDPENDDISDT 10-10 12:04 → EDPENDDISTM 10-10 12:04 → EDPENDDIS 10-10 12:04 → MEDS 10-10 16:10
PROVIDERS: Emergency Medicine; Hospitalist; Internal Medicine; Orthopaedic Surgery; ADMIT Internal Medicine
PROC: 3E02340 Introduction of Influenza Vaccine into Muscle, Percutaneous Approach (ICD-10-PCS; principal; 2021-09-28 14:00)
PROC: 0J9P0ZZ Drainage of Left Lower Leg Subcutaneous Tissue and Fascia, Open Approach (ICD-10-PCS; 2021-09-29)
DX: L02.416 Cutaneous abscess of left lower limb (principal); G92.8 Other toxic encephalopathy; Z66 Do not resuscitate; Z23 Encounter for immunization; Z20.822 Contact with and (suspected) exposure to COVID-19; I10 Essential (primary) hypertension; E03.9 Hypothyroidism, unspecified; E11.65 Type 2 diabetes mellitus with hyperglycemia; L03.116 Cellulitis of left lower limb; G30.9 Alzheimer's disease, unspecified; F02.80 Dementia in other diseases classified elsewhere, unspecified severity, without behavioral disturbance, psychotic disturbance, mood disturbance, and anxiety; B96.20 Unspecified Escherichia coli [E. coli] as the cause of diseases classified elsewhere; Z79.82 Long term (current) use of aspirin; Z79.899 Other long term (current) drug therapy; S22.32XD Fracture of one rib, left side, subsequent encounter for fracture with routine healing; W18.39XD Other fall on same level, subsequent encounter
CPT/HCPCS: 0241U; 36415; 70450; 73700; 80048; 80053; 80069; 80202; 82947; 83605; 84132; 85014; 85018; 85025; 85027; 86140; 87070; 87075; 87077; 87186; 87205; 90686; 92526; 92610; 93971; 94760; 96365; 96366; 96367; 97110; 97161; 97530; 99285-25; A9270; G0008; J0360; J0690; J1630; J1650; J1815; J1885; J2185; J2405; J2704; J3010; J3370; J7050; J7120

== ENCOUNTER → 2021-11-21 | Outpatient (CLI) | payer MEDICARE ==
[~2021-11-21] MED LIST changes: +CEPH500 PO; +DOXA1 PO; +MOBIC15 MG PO
[2021-11-21 19:13] LABS: BASOPHILS ABSOLUTE AUTO 0.08 K/mm3 (0.00-0.23); BASOPHILS PERCENT AUTO 1 % (0-2); EOSINOPHILS PERCENT AUTO 3 % (0-6); Hematocrit 35.8 % (37.0-53.0); Hemoglobin 11.1 g/dL (13.5-17.5); IMMATURE GRAN ABSOLUTE AUTO 0.02 K/mm3 (0.00-0.10); IMMATURE GRAN PERCENT AUTO 0 % (0-1); LYMPHOCYTES ABSOLUTE AUTO 1.57 K/mm3 (0.84-5.20); LYMPHOCYTES PERCENT AUTO 24 % (21-46); MONOCYTES PERCENT AUTO 8 % (4-13); Mean Corpuscular HGB 28.6 pg (26.0-34.0); Mean Corpuscular Volume 92 fL (80-100); Mean Platelet Volume 12.9 fL (9.1-12.4); NEUTROPHILS ABSOLUTE AUTO 4.06 K/mm3 (1.96-9.15); NEUTROPHILS PERCENT AUTO 63 % (41-73); Platelet Count 93 K/mm3 (150-400); RDW Coefficient Variation 14.6 % (11.7-14.2); RDW Standard Deviation 49.6 fL (35.1-46.3); Red Blood Cell Count 3.88 M/mm3 (4.30-5.90); White Blood Cell Count 6.43 K/mm3 (4.00-11.30)
[2021-11-21 19:14] LABS: Albumin, Blood 3.6 g/dL (3.4-5.0); Albumin/Globulin Ratio 1.1 (0.8-1.8); Bilirubin, Total 0.4 mg/dL (0.1-1.0); Calcium, Blood 8.4 mg/dL (8.5-10.1); Creatinine, Blood 1.32 mg/dL (0.60-1.20); Globulin, Blood 3.3 g/dL (2.2-4.0); Potassium, Blood 4.6 mmol/L (3.5-5.5); Total Protein, Blood 6.9 g/dL (6.4-8.2)
== END ==
LOC: LAB SHORT 15:19
PROVIDERS: Family Medicine
DX: I50.9 Heart failure, unspecified (principal)
CPT/HCPCS: 80053; 83880; 85025

== ENCOUNTER → 2021-11-21 | Outpatient (CLI) | payer MEDICARE | END | disposition home or self-care (01) | LOC: LAB HH 14:58 | DX: L02.416 Cutaneous abscess of left lower limb (principal) | CPT/HCPCS: 87070; 87075; 87077; 87147; 87186; 87205 ==

== ENCOUNTER 2021-11-25 00:57 | Day surgery (SDC) | payer MEDICARE | END 2021-11-25 23:58 | disposition home or self-care (01) | LOC: WOUND 00:57 | DX: E11.621 Type 2 diabetes mellitus with foot ulcer (principal); L97.428 Non-pressure chronic ulcer of left heel and midfoot with other specified severity; E11.622 Type 2 diabetes mellitus with other skin ulcer; L97.222 Non-pressure chronic ulcer of left calf with fat layer exposed; L97.922 Non-pressure chronic ulcer of unspecified part of left lower leg with fat layer exposed; L03.116 Cellulitis of left lower limb; E11.628 Type 2 diabetes mellitus with other skin complications; I87.312 Chronic venous hypertension (idiopathic) with ulcer of left lower extremity; I87.2 Venous insufficiency (chronic) (peripheral); I11.0 Hypertensive heart disease with heart failure; I50.9 Heart failure, unspecified; Z88.0 Allergy status to penicillin; Z88.8 Allergy status to other drugs, medicaments and biological substances | CPT/HCPCS: A9270 ==

== ENCOUNTER 2021-12-02 01:17 | Day surgery (SDC) | payer MEDICARE | END 2021-12-02 22:54 | disposition home or self-care (01) | LOC: WOUND 01:17 | DX: E11.621 Type 2 diabetes mellitus with foot ulcer (principal); E11.622 Type 2 diabetes mellitus with other skin ulcer; L97.822 Non-pressure chronic ulcer of other part of left lower leg with fat layer exposed; L97.222 Non-pressure chronic ulcer of left calf with fat layer exposed; L97.428 Non-pressure chronic ulcer of left heel and midfoot with other specified severity; I87.312 Chronic venous hypertension (idiopathic) with ulcer of left lower extremity; L03.116 Cellulitis of left lower limb; I11.0 Hypertensive heart disease with heart failure; I50.9 Heart failure, unspecified; E03.9 Hypothyroidism, unspecified | CPT/HCPCS: A9270; G0463 ==

== ENCOUNTER 2021-12-09 00:36 | Day surgery (SDC) | payer MEDICARE | END 2021-12-09 23:57 | disposition home or self-care (01) | LOC: WOUND 00:36 | DX: E11.621 Type 2 diabetes mellitus with foot ulcer (principal); L97.202 Non-pressure chronic ulcer of unspecified calf with fat layer exposed; L97.429 Non-pressure chronic ulcer of left heel and midfoot with unspecified severity; E11.622 Type 2 diabetes mellitus with other skin ulcer; L97.822 Non-pressure chronic ulcer of other part of left lower leg with fat layer exposed; I11.0 Hypertensive heart disease with heart failure; I50.9 Heart failure, unspecified; E03.9 Hypothyroidism, unspecified; E11.628 Type 2 diabetes mellitus with other skin complications; I87.312 Chronic venous hypertension (idiopathic) with ulcer of left lower extremity | CPT/HCPCS: A9270 ==

== ENCOUNTER 2021-12-16 02:27 | Day surgery (SDC) | payer MEDICARE | END 2021-12-16 23:23 | disposition home or self-care (01) | LOC: WOUND 02:27 | DX: E11.621 Type 2 diabetes mellitus with foot ulcer (principal); E11.622 Type 2 diabetes mellitus with other skin ulcer; E11.628 Type 2 diabetes mellitus with other skin complications; I87.312 Chronic venous hypertension (idiopathic) with ulcer of left lower extremity; L97.202 Non-pressure chronic ulcer of unspecified calf with fat layer exposed; L97.429 Non-pressure chronic ulcer of left heel and midfoot with unspecified severity; L97.822 Non-pressure chronic ulcer of other part of left lower leg with fat layer exposed | CPT/HCPCS: A9270; G0463 ==

== ENCOUNTER 2021-12-30 01:14 | Day surgery (SDC) | payer MEDICARE | END 2021-12-30 23:33 | disposition home or self-care (01) | LOC: WOUND 01:14 | DX: E11.621 Type 2 diabetes mellitus with foot ulcer (principal); L97.429 Non-pressure chronic ulcer of left heel and midfoot with unspecified severity; E11.622 Type 2 diabetes mellitus with other skin ulcer; L97.825 Non-pressure chronic ulcer of other part of left lower leg with muscle involvement without evidence of necrosis; L97.222 Non-pressure chronic ulcer of left calf with fat layer exposed; E11.628 Type 2 diabetes mellitus with other skin complications; L03.116 Cellulitis of left lower limb; I87.312 Chronic venous hypertension (idiopathic) with ulcer of left lower extremity | CPT/HCPCS: A9270; G0463 ==

== ENCOUNTER 2022-01-06 00:21 | Day surgery (SDC) | payer MEDICARE | END 2022-01-06 23:15 | disposition home or self-care (01) | LOC: WOUND 00:21 | DX: E11.622 Type 2 diabetes mellitus with other skin ulcer (principal); L97.222 Non-pressure chronic ulcer of left calf with fat layer exposed; L97.825 Non-pressure chronic ulcer of other part of left lower leg with muscle involvement without evidence of necrosis; E11.621 Type 2 diabetes mellitus with foot ulcer; L97.429 Non-pressure chronic ulcer of left heel and midfoot with unspecified severity; E11.628 Type 2 diabetes mellitus with other skin complications; I87.312 Chronic venous hypertension (idiopathic) with ulcer of left lower extremity; L03.116 Cellulitis of left lower limb | CPT/HCPCS: A9270 ==

== ENCOUNTER 2022-01-13 02:30 | Day surgery (SDC) | payer MEDICARE | END 2022-01-13 23:21 | disposition home or self-care (01) | LOC: WOUND 02:30 | DX: E11.621 Type 2 diabetes mellitus with foot ulcer (principal); L97.428 Non-pressure chronic ulcer of left heel and midfoot with other specified severity; E11.622 Type 2 diabetes mellitus with other skin ulcer; L97.825 Non-pressure chronic ulcer of other part of left lower leg with muscle involvement without evidence of necrosis; L97.228 Non-pressure chronic ulcer of left calf with other specified severity; E11.628 Type 2 diabetes mellitus with other skin complications; I87.312 Chronic venous hypertension (idiopathic) with ulcer of left lower extremity; L97.222 Non-pressure chronic ulcer of left calf with fat layer exposed; L03.116 Cellulitis of left lower limb; I11.0 Hypertensive heart disease with heart failure; I50.9 Heart failure, unspecified; E03.9 Hypothyroidism, unspecified | CPT/HCPCS: A9270; G0463 ==

== ENCOUNTER → 2022-01-18 | Outpatient (CLI) | payer MEDICARE ==
[2022-01-18 12:19] LABS: Thyroxine (T4) 3.9 ug/dL (4.5-12.1)
[2022-01-18 12:21] LABS: Thyroid Stimulating Hormone 1.77 uIU/mL (0.360-4.800)
== END | disposition home or self-care (01) ==
LOC: LAB SHORT 11:08
PROVIDERS: Family Medicine
DX: E03.9 Hypothyroidism, unspecified (principal); E11.9 Type 2 diabetes mellitus without complications
CPT/HCPCS: 83036; 84436; 84443

== ENCOUNTER 2022-01-20 00:57 | Day surgery (SDC) | payer MEDICARE | END 2022-01-20 23:00 | disposition home or self-care (01) | LOC: WOUND 00:57 | DX: E11.621 Type 2 diabetes mellitus with foot ulcer (principal); L97.429 Non-pressure chronic ulcer of left heel and midfoot with unspecified severity; E11.622 Type 2 diabetes mellitus with other skin ulcer; I87.312 Chronic venous hypertension (idiopathic) with ulcer of left lower extremity; L97.228 Non-pressure chronic ulcer of left calf with other specified severity; I11.0 Hypertensive heart disease with heart failure; I50.9 Heart failure, unspecified; E03.9 Hypothyroidism, unspecified; L97.828 Non-pressure chronic ulcer of other part of left lower leg with other specified severity; L03.116 Cellulitis of left lower limb | CPT/HCPCS: A9270; G0463 ==

== ENCOUNTER 2022-02-03 00:22 | Day surgery (SDC) | payer MEDICARE | END 2022-02-03 22:53 | disposition home or self-care (01) | LOC: WOUND 00:22 | DX: E11.621 Type 2 diabetes mellitus with foot ulcer (principal); E11.622 Type 2 diabetes mellitus with other skin ulcer; I87.312 Chronic venous hypertension (idiopathic) with ulcer of left lower extremity; L97.529 Non-pressure chronic ulcer of other part of left foot with unspecified severity; L97.822 Non-pressure chronic ulcer of other part of left lower leg with fat layer exposed; L97.222 Non-pressure chronic ulcer of left calf with fat layer exposed; L03.116 Cellulitis of left lower limb; I11.0 Hypertensive heart disease with heart failure; I50.9 Heart failure, unspecified; E03.9 Hypothyroidism, unspecified | CPT/HCPCS: A9270; G0463 ==

== ENCOUNTER 2022-02-17 01:07 | Day surgery (SDC) | payer MEDICARE | END 2022-02-17 23:25 | disposition home or self-care (01) | LOC: WOUND 01:07 | DX: E11.621 Type 2 diabetes mellitus with foot ulcer (principal); E11.622 Type 2 diabetes mellitus with other skin ulcer; L97.529 Non-pressure chronic ulcer of other part of left foot with unspecified severity; I87.312 Chronic venous hypertension (idiopathic) with ulcer of left lower extremity; L97.222 Non-pressure chronic ulcer of left calf with fat layer exposed; L03.116 Cellulitis of left lower limb; E11.59 Type 2 diabetes mellitus with other circulatory complications | CPT/HCPCS: A9270; G0463 ==

== ENCOUNTER 2022-02-24 05:18 | Day surgery (SDC) | payer MEDICARE | END 2022-02-24 23:01 | disposition home or self-care (01) | LOC: WOUND 05:18 | DX: E11.621 Type 2 diabetes mellitus with foot ulcer (principal); L97.429 Non-pressure chronic ulcer of left heel and midfoot with unspecified severity; E11.622 Type 2 diabetes mellitus with other skin ulcer; L97.222 Non-pressure chronic ulcer of left calf with fat layer exposed; L03.116 Cellulitis of left lower limb; E11.628 Type 2 diabetes mellitus with other skin complications; I87.312 Chronic venous hypertension (idiopathic) with ulcer of left lower extremity | CPT/HCPCS: A9270; G0463 ==

== ENCOUNTER 2022-03-03 03:29 | Day surgery (SDC) | payer MEDICARE | END 2022-03-03 23:19 | disposition home or self-care (01) | LOC: WOUND 03:29 | DX: E11.621 Type 2 diabetes mellitus with foot ulcer (principal); E11.622 Type 2 diabetes mellitus with other skin ulcer; L97.529 Non-pressure chronic ulcer of other part of left foot with unspecified severity; L97.222 Non-pressure chronic ulcer of left calf with fat layer exposed; I87.312 Chronic venous hypertension (idiopathic) with ulcer of left lower extremity; L03.116 Cellulitis of left lower limb; I11.0 Hypertensive heart disease with heart failure; I50.9 Heart failure, unspecified; E03.9 Hypothyroidism, unspecified | CPT/HCPCS: A9270; G0463 ==

== ENCOUNTER 2022-03-10 08:00 | Day surgery (SDC) | payer MEDICARE | END 2022-03-10 23:59 | disposition home or self-care (01) | LOC: WOUND 08:00 | DX: E11.621 Type 2 diabetes mellitus with foot ulcer (principal); E11.622 Type 2 diabetes mellitus with other skin ulcer; L97.529 Non-pressure chronic ulcer of other part of left foot with unspecified severity; I87.312 Chronic venous hypertension (idiopathic) with ulcer of left lower extremity; L97.222 Non-pressure chronic ulcer of left calf with fat layer exposed; L03.116 Cellulitis of left lower limb; I11.0 Hypertensive heart disease with heart failure; I50.9 Heart failure, unspecified; E03.9 Hypothyroidism, unspecified | CPT/HCPCS: G0463 ==

== ENCOUNTER 2022-03-24 00:47 | Day surgery (SDC) | payer MEDICARE | END 2022-03-24 23:02 | disposition home or self-care (01) | LOC: WOUND 00:47 | DX: E11.621 Type 2 diabetes mellitus with foot ulcer (principal); L97.429 Non-pressure chronic ulcer of left heel and midfoot with unspecified severity; E11.622 Type 2 diabetes mellitus with other skin ulcer; L97.222 Non-pressure chronic ulcer of left calf with fat layer exposed; E11.628 Type 2 diabetes mellitus with other skin complications; I87.312 Chronic venous hypertension (idiopathic) with ulcer of left lower extremity; L03.116 Cellulitis of left lower limb | CPT/HCPCS: G0463 ==

== ENCOUNTER 2022-04-14 03:05 | Day surgery (SDC) | payer MEDICARE | END 2022-04-14 23:11 | disposition home or self-care (01) | LOC: WOUND 03:05 | DX: I87.312 Chronic venous hypertension (idiopathic) with ulcer of left lower extremity (principal); E11.622 Type 2 diabetes mellitus with other skin ulcer; L97.222 Non-pressure chronic ulcer of left calf with fat layer exposed; E11.621 Type 2 diabetes mellitus with foot ulcer; L97.509 Non-pressure chronic ulcer of other part of unspecified foot with unspecified severity; L03.116 Cellulitis of left lower limb; E11.628 Type 2 diabetes mellitus with other skin complications | CPT/HCPCS: G0463 ==

== ENCOUNTER → 2022-04-21 | Outpatient (CLI) | payer MEDICARE ==
[2022-04-21 13:24] LABS: Albumin, Blood 3.5 g/dL (3.4-5.0); Albumin/Globulin Ratio 1.1 (0.8-1.8); Bilirubin, Total 0.5 mg/dL (0.1-1.0); Bun/Creatinine Ratio 18.5 (12.0-20.0); Calcium, Blood 8.5 mg/dL (8.5-10.1); Creatinine, Blood 1.19 mg/dL (0.60-1.20); Globulin, Blood 3.2 g/dL (2.2-4.0); Potassium, Blood 4.1 mmol/L (3.5-5.5); Thyroid Stimulating Hormone 1.98 uIU/mL (0.360-4.800); Thyroxine (T4) 4.4 ug/dL (4.5-12.1); Total Protein, Blood 6.7 g/dL (6.4-8.2)
[2022-04-21 13:25] LABS: BASOPHILS ABSOLUTE AUTO 0.06 K/mm3 (0.00-0.23); BASOPHILS PERCENT AUTO 1 % (0-2); EOSINOPHILS ABSOLUTE AUTO 0.15 K/mm3 (0.00-0.68); EOSINOPHILS PERCENT AUTO 2 % (0-6); Hematocrit 40.8 % (37.0-53.0); Hemoglobin 13.5 g/dL (13.5-17.5); IMMATURE GRAN ABSOLUTE AUTO 0.02 K/mm3 (0.00-0.10); IMMATURE GRAN PERCENT AUTO 0 % (0-1); LYMPHOCYTES ABSOLUTE AUTO 2.01 K/mm3 (0.84-5.20); LYMPHOCYTES PERCENT AUTO 28 % (21-46); MONOCYTES ABSOLUTE AUTO 0.65 K/mm3 (0.16-1.47); MONOCYTES PERCENT AUTO 9 % (4-13); Mean Corpuscular HGB 30.1 pg (26.0-34.0); Mean Corpuscular HGB Conc 33.1 g/dL (31.5-36.5); Mean Corpuscular Volume 91 fL (80-100); Mean Platelet Volume 12.7 fL (9.1-12.4); NEUTROPHILS PERCENT AUTO 60 % (41-73); Platelet Count 96 K/mm3 (150-400); RDW Coefficient Variation 12.9 % (11.7-14.2); RDW Standard Deviation 43.1 fL (35.1-46.3); Red Blood Cell Count 4.48 M/mm3 (4.30-5.90); White Blood Cell Count 7.19 K/mm3 (4.00-11.30)
== END | disposition home or self-care (01) ==
LOC: LAB 11:22 → LAB SHORT 11:22
PROVIDERS: Family Medicine
DX: E03.9 Hypothyroidism, unspecified (principal); E11.9 Type 2 diabetes mellitus without complications
CPT/HCPCS: 80053; 83036; 84436; 84443; 85025

== ENCOUNTER 2022-04-28 01:19 | Day surgery (SDC) | payer MEDICARE | END 2022-04-28 23:06 | disposition home or self-care (01) | LOC: WOUND 01:19 | DX: E11.622 Type 2 diabetes mellitus with other skin ulcer (principal); L97.222 Non-pressure chronic ulcer of left calf with fat layer exposed; E11.621 Type 2 diabetes mellitus with foot ulcer; E11.628 Type 2 diabetes mellitus with other skin complications; I87.312 Chronic venous hypertension (idiopathic) with ulcer of left lower extremity; L03.116 Cellulitis of left lower limb | CPT/HCPCS: G0463 ==

== ENCOUNTER → 2022-05-29 | Outpatient (CLI) | payer MEDICARE ==
[2022-05-29 18:43] LABS: Appearance, Urine Clear (Clear); Bilirubin, Urine Neg (Neg); Blood, Urine 1+ (Neg); Color, Urine Yellow (P-Yellow); Glucose Qualitative, Urine Neg (Neg); Ketones, Urine Neg (Neg); Leukocyte Esterase, Urine Neg (Neg); Nitrite, Urine Neg (Neg); Protein, Urine 1+ (Neg); Urobilinogen, Urine NORM (Normal)
[2022-05-29 19:08] LABS: Bacteria Mod /hpf; Red Blood Cells, Urine 0-2 /hpf (0-2); Squamous Epithelial Cells Rare /hpf (Few); White Blood Cells, Urine 0-2 /hpf (0-5)
== END | disposition home or self-care (01) ==
LOC: LAB SHORT 12:56
PROVIDERS: Family Medicine
DX: N39.0 Urinary tract infection, site not specified (principal)
CPT/HCPCS: 81001; 87086

== ENCOUNTER 2022-07-02 22:36 | Emergency (ER) | payer MEDICARE ==
[~2022-07-02] VITALS: Ht 167.6 cm; Wt 81.7 kg
[2022-07-03 00:18] LABS: BASOPHILS ABSOLUTE AUTO 0.03 K/mm3 (0.00-0.23); BASOPHILS PERCENT AUTO 0 % (0-2); EOSINOPHILS ABSOLUTE AUTO 0.05 K/mm3 (0.00-0.68); EOSINOPHILS PERCENT AUTO 0 % (0-6); Hematocrit 47.7 % (37.0-53.0); Hemoglobin 16.1 g/dL (13.5-17.5); IMMATURE GRAN ABSOLUTE AUTO 0.04 K/mm3 (0.00-0.10); IMMATURE GRAN PERCENT AUTO 0 % (0-1); LYMPHOCYTES PERCENT AUTO 4 % (21-46); MONOCYTES ABSOLUTE AUTO 0.74 K/mm3 (0.16-1.47); MONOCYTES PERCENT AUTO 6 % (4-13); Mean Corpuscular HGB 30.7 pg (26.0-34.0); Mean Corpuscular HGB Conc 33.8 g/dL (31.5-36.5); Mean Corpuscular Volume 91 fL (80-100); NEUTROPHILS ABSOLUTE AUTO 10.31 K/mm3 (1.96-9.15); NEUTROPHILS PERCENT AUTO 89 % (41-73); Platelet Count 84 K/mm3 (150-400); RDW Coefficient Variation 12.5 % (11.7-14.2); RDW Standard Deviation 41.8 fL (35.1-46.3); Red Blood Cell Count 5.24 M/mm3 (4.30-5.90); White Blood Cell Count 11.57 K/mm3 (4.00-11.30)
[2022-07-03 00:35] LABS: Albumin, Blood 3.9 g/dL (3.4-5.0); Albumin/Globulin Ratio 0.9 (0.8-1.8); Bilirubin, Total 0.9 mg/dL (0.1-1.0); Bun/Creatinine Ratio 23.6 (12.0-20.0); Calcium, Blood 8.9 mg/dL (8.5-10.1); Creatinine, Blood 1.27 mg/dL (0.60-1.20); Globulin, Blood 4.2 g/dL (2.2-4.0); Potassium, Blood 4.7 mmol/L (3.5-5.5); Total Protein, Blood 8.1 g/dL (6.4-8.2)
[2022-07-03 02:46] LABS: Adenovirus F 40/41 Not Detected (NOT DETECT); Astrovirus Not Detected (NOT DETECT); Campylobacter Sp Not Detected (NOT DETECT); Cryptosporidium Not Detected (NOT DETECT); Cyclospora Cayetanensis Not Detected (NOT DETECT); E. Coli O157 Not Detected (NOT DETECT); Entamoeba Histolytica Not Detected (NOT DETECT); Enteroaggregative E. coli-EAEC Not Detected (NOT DETECT); Enteropathogenic E. coli-EPEC Detected (NOT DETECT); Enterotoxigenic E. coli-ETEC Not Detected (NOT DETECT); Giardia Lamblia Not Detected (NOT DETECT); Norovirus GI/GII Detected (NOT DETECT); Plesiomonas Shigelloides Not Detected (NOT DETECT); Rotavirus A Not Detected (NOT DETECT); Salmonella Sp Not Detected (NOT DETECT); Sapovirus Not Detected (NOT DETECT); Shiga Toxin-prod E. coli-STEC Not Detected (NOT DETECT); Shigella/Enteroin E. coli-EIEC Not Detected (NOT DETECT); Vibrio Cholerae Not Detected (NOT DETECT); Vibrio Sp Not Detected (NOT DETECT); Yersinia Enterocolitica Not Detected (NOT DETECT)
== END 2022-07-03 03:55 | disposition home or self-care (01) ==
LOC: ER 22:36
PROVIDERS: Emergency Medicine
DX: A08.11 Acute gastroenteropathy due to Norwalk agent (principal); I11.0 Hypertensive heart disease with heart failure; I50.9 Heart failure, unspecified; E11.9 Type 2 diabetes mellitus without complications; E03.9 Hypothyroidism, unspecified
CPT/HCPCS: 80053; 84484; 85025; 87507; 93005; 93010; 96374; 99285-25; J2405; J7030

== ENCOUNTER → 2023-01-03 | Outpatient (CLI) | payer MEDICARE ==
[2023-01-03 14:54] LABS: Alanine Aminotransfer (ALT/SGP 18 U/L (12-78); Albumin, Blood 3.6 g/dL (3.4-5.0); Albumin/Globulin Ratio 0.9 (0.8-1.8); Alk Phos 74 U/L (50-136); Anion Gap 2 mmol/L (6-16); Aspartate Aminotrans (AST/SGOT 14 U/L (12-37); Bilirubin, Total 0.5 mg/dL (0.1-1.0); Blood Urea Nitrogen 30 mg/dL (8-24); Bun/Creatinine Ratio 20.1 (12.0-20.0); CHOL/HDL RATIO 4.5; CO2, Blood 30 mmol/L (21-32); Chloride, Blood 106 mmol/L (98-108); Cholesterol 172 mg/dL (50-200); Creatinine, Blood 1.49 mg/dL (0.60-1.20); Globulin, Blood 3.8 g/dL (2.2-4.0); Glomerular Filtration Rate 45 (60-); Glucose, Blood 107 mg/dL (70-99); HDL Cholesterol 38 mg/dL (>39); Low Density Lipoprotein Chol 112 mg/dL (0-110); Sodium, Blood 138 mmol/L (136-145); Thyroxine (T4) 6.1 ug/dL (4.5-12.1); Total Protein, Blood 7.4 g/dL (6.4-8.2); Triglycerides 108 mg/dL (30-160); Very Low Density Lipoprot Chol 21 mg/dL (6-32)
== END | disposition home or self-care (01) ==
LOC: LAB SHORT 07:38 → LAB 07:38
PROVIDERS: Family Medicine
DX: E03.9 Hypothyroidism, unspecified (principal); E11.8 Type 2 diabetes mellitus with unspecified complications; I11.0 Hypertensive heart disease with heart failure; I50.9 Heart failure, unspecified; F03.90 Unspecified dementia, unspecified severity, without behavioral disturbance, psychotic disturbance, mood disturbance, and anxiety
CPT/HCPCS: 80053; 80061; 84436; 84443

== ENCOUNTER 2023-02-26 12:45 | Inpatient (IN) | payer MEDICARE ==
[~2023-02-26] VITALS: Ht 180.3 cm; Wt 90.4 kg
[2023-02-26 13:35] LABS: BASOPHILS ABSOLUTE AUTO 0.08 K/mm3 (0.00-0.23); BASOPHILS PERCENT AUTO 1 % (0-2); EOSINOPHILS ABSOLUTE AUTO 0.52 K/mm3 (0.00-0.68); EOSINOPHILS PERCENT AUTO 8 % (0-6); Hematocrit 37.6 % (37.0-53.0); IMMATURE GRAN ABSOLUTE AUTO 0.02 K/mm3 (0.00-0.10); IMMATURE GRAN PERCENT AUTO 0 % (0-1); LYMPHOCYTES ABSOLUTE AUTO 1.89 K/mm3 (0.84-5.20); LYMPHOCYTES PERCENT AUTO 29 % (21-46); MONOCYTES ABSOLUTE AUTO 0.92 K/mm3 (0.16-1.47); MONOCYTES PERCENT AUTO 14 % (4-13); Mean Corpuscular HGB 29.6 pg (26.0-34.0); Mean Corpuscular HGB Conc 31.9 g/dL (31.5-36.5); Mean Corpuscular Volume 93 fL (80-100); NEUTROPHILS ABSOLUTE AUTO 3.01 K/mm3 (1.96-9.15); NEUTROPHILS PERCENT AUTO 47 % (41-73); Platelet Count 122 K/mm3 (150-400); RDW Coefficient Variation 13.2 % (11.7-14.2); RDW Standard Deviation 45.1 fL (35.1-46.3); Red Blood Cell Count 4.06 M/mm3 (4.30-5.90); White Blood Cell Count 6.44 K/mm3 (4.00-11.30)
[2023-02-26 13:51] LABS: Albumin, Blood 3.7 g/dL (3.4-5.0); Bilirubin, Total 0.7 mg/dL (0.1-1.0); Bun/Creatinine Ratio 29.5 (12.0-20.0); Calcium, Blood 8.9 mg/dL (8.5-10.1); Creatinine, Blood 1.9 mg/dL (0.60-1.20); Globulin, Blood 3.8 g/dL (2.2-4.0); Potassium, Blood 4.7 mmol/L (3.5-5.5); Total Protein, Blood 7.5 g/dL (6.4-8.2)
[2023-02-26 15:25] LABS: Base Excess Venous 7.7 mmol/L; Bicarbonate Venous 30.2 mmol/L (24.0-30.0); PCO2 Venous 51.5 mmHg (38-42); pH Blood Venous 7.41 (7.34-7.37)
[2023-02-26 15:31] LABS: Source, Urine Straight Cath
[2023-02-26 15:35] LABS: Appearance, Urine Clear (Clear); Bilirubin, Urine Neg (Neg); Blood, Urine Neg (Neg); Glucose Qualitative, Urine Neg (Neg); Ketones, Urine Neg (Neg); Leukocyte Esterase, Urine Neg (Neg); Nitrite, Urine Neg (Neg); Protein, Urine Neg (Neg); Specific Gravity, Urine 1.015 (1.003-1.022); Urobilinogen, Urine NORM (Normal)
[2023-02-26 15:37] LABS: Color, Urine Pale Yellow (P-Yellow)
[2023-02-26 17:46] LABS: U Amphetamine Screen Not Detected; U Barbituate Screen Not Detected; U Benzodiazapine Screen Not Detected; U Buprenorphine Screen Not Detected; U Cannabinoids Screen Not Detected; U Cocaine Screen Not Detected; U Methadone Screen Not Detected; U Methamphetamine Screen Not Detected; U Opiates Screen Not Detected; U Oxycodone Screen Not Detected; U Phencyclidine Screen Not Detected; U Propoxyphene Screen Not Detected
[2023-02-26] MEDS ORDERED: METO5 PO (19:49)
[2023-02-26] MEDS ORDERED: CILO100 PO (19:50)
[2023-02-26] MEDS ORDERED: TRAZ50 PO (19:55)
[2023-02-26] MEDS ORDERED: MELO7.5 PO (19:55)
[2023-02-26] MEDS ORDERED: POTA10T PO (19:56)
[2023-02-26 20:40] VITALS: BP 134/45
[2023-02-27 02:54] VITALS: BP 102/55
--- NOTE | 2023-02-27 04:01 | NUR ---
SHIFT SUMMARY ALERT, MOSTLY NONVERBAL. PT UNABLE TO FOLLOW COMMANDS. INCONT, ATTENDS IN PLACE. SPO2 >92% ON 3L NC, CONT. BIOX IN PLACE. SCATTERED ABRASIONS NOTED T/O, SEE PICTURES IN CHART. VSS, NO ACUTE CHANGES AT THIS TIME. BED IN LOWEST POSITION WITH CALL LIGHT IN REACH. WILL CONTINUE TO MONITOR AND REPORT TO ONCOMING RN.
[2023-02-27 04:56] LABS: BASOPHILS ABSOLUTE AUTO 0.09 K/mm3 (0.00-0.23); BASOPHILS PERCENT AUTO 2 % (0-2); EOSINOPHILS ABSOLUTE AUTO 0.39 K/mm3 (0.00-0.68); EOSINOPHILS PERCENT AUTO 6 % (0-6); Hematocrit 36.4 % (37.0-53.0); Hemoglobin 11.9 g/dL (13.5-17.5); IMMATURE GRAN ABSOLUTE AUTO 0.01 K/mm3 (0.00-0.10); IMMATURE GRAN PERCENT AUTO 0 % (0-1); LYMPHOCYTES ABSOLUTE AUTO 1.66 K/mm3 (0.84-5.20); LYMPHOCYTES PERCENT AUTO 27 % (21-46); MONOCYTES ABSOLUTE AUTO 0.64 K/mm3 (0.16-1.47); MONOCYTES PERCENT AUTO 11 % (4-13); Mean Corpuscular HGB 29.6 pg (26.0-34.0); Mean Corpuscular HGB Conc 32.7 g/dL (31.5-36.5); Mean Corpuscular Volume 91 fL (80-100); Mean Platelet Volume 12.9 fL (9.1-12.4); NEUTROPHILS ABSOLUTE AUTO 3.31 K/mm3 (1.96-9.15); NEUTROPHILS PERCENT AUTO 54 % (41-73); Platelet Count 143 K/mm3 (150-400); RDW Coefficient Variation 13.1 % (11.7-14.2); RDW Standard Deviation 43.8 fL (35.1-46.3); Red Blood Cell Count 4.02 M/mm3 (4.30-5.90)
[2023-02-27 05:15] LABS: Albumin, Blood 3.5 g/dL (3.4-5.0); Albumin/Globulin Ratio 0.9 (0.8-1.8); Bilirubin, Total 0.8 mg/dL (0.1-1.0); Bun/Creatinine Ratio 31.6 (12.0-20.0); Calcium, Blood 8.8 mg/dL (8.5-10.1); Creatinine, Blood 1.55 mg/dL (0.60-1.20); Magnesium, Blood 2.5 mg/dL (1.6-2.4); Total Protein, Blood 7.5 g/dL (6.4-8.2)
[2023-02-27 07:22] VITALS: BP 128/81
[2023-02-27 14:55] VITALS: BP 126/65
--- NOTE | 2023-02-27 18:14 | NUR ---
PATIENT HAS BEEN INTERMITTENTLY UP IN BED PULLING AT IV, O2 AND BIOX THIS AM. TOLERATING ROOM AIR NOW AT 97% O2 SAT. CURRENTLY RESTING IN BED. BEDSIDE SWALLOW EVAL BY THIS RN WAS PASSED, ABLE TO TOLERATE WATER ON SPOON, CUP, STRAW AND APPLESAUCE WITH MEDS/MADELAINE CRACKER. TOLERATED MECHANICAL SOFT DINNER THIS EVENING. BED ALARM ON, CALL LIGHT IN REACH AND BED IN LOW POSITION. WILL CONTINUE TO MONITOR.
[2023-02-27 19:52] VITALS: BP 129/104
[2023-02-28 03:35] VITALS: BP 141/56
--- NOTE | 2023-02-28 04:44 | NUR ---
Summary: Patient Aox1. On room air overnight. Patient awake most of night. Was attempting to get out of bed unsafely. Redirectable at first but then became agitated with redirection. IM geodon 2.5 mg given once. Patient did well after that. Bed alarm on. Call light in reach.
--- NOTE | 2023-02-28 06:06 | NUR ---
Patient glucose low this am. Pollyetn alert and drank two glasses apple juice.
[2023-02-28 08:01] VITALS: BP 124/49
[2023-02-28 09:00] LABS: Hemoglobin 11.6 g/dL (13.5-17.5); Mean Corpuscular HGB 29.6 pg (26.0-34.0); Mean Corpuscular HGB Conc 32.2 g/dL (31.5-36.5); Mean Corpuscular Volume 92 fL (80-100); Platelet Count 137 K/mm3 (150-400); RDW Coefficient Variation 13.3 % (11.7-14.2); RDW Standard Deviation 44.6 fL (35.1-46.3); Red Blood Cell Count 3.92 M/mm3 (4.30-5.90); White Blood Cell Count 5.29 K/mm3 (4.00-11.30)
[2023-02-28 09:50] LABS: Albumin, Blood 3.5 g/dL (3.4-5.0); Anion Gap 7 mmol/L (6-16); Blood Urea Nitrogen 42 mg/dL (8-24); CO2, Blood 29 mmol/L (21-32); Calcium, Blood 8.7 mg/dL (8.5-10.1); Chloride, Blood 102 mmol/L (98-108); Ferritin, Serum 93 ng/mL (26-388); Glomerular Filtration Rate 48 (60-); Glucose, Blood 105 mg/dL (70-99); Iron Serum 70 ug/dL (65-175); Percent Saturation 18.9 % (20.0-50.0); Phosphorus, Blood 2.6 mg/dL (2.5-4.9); Potassium, Blood 4.1 mmol/L (3.5-5.5); Sodium, Blood 138 mmol/L (136-145); Total Iron Binding Capacity 370 ug/dL (250-450)
[2023-02-28 12:41] VITALS: BP 146/66
--- NOTE | 2023-02-28 14:23 | NUR ---
DISCHARGE SUMMARY AND REPORT: PATIENT ON RA WHEN AWAKE WITH SPO2 92-96%. PATIENT DID REQUIRE 2L O2 VIA NC WHEN SLEEPING. PER VIJAYA, THIS IS BASELINE FOR THE PATIENT. NO RESPIRATORY DISTRESS NOTED DURING THE SHIFT. BREATHS WERE EVEN AND REGULAR. PATIENT ATE BREAKFAST WITH APPLICATION PACKAGING SPECIALIST, WORKED WITH ST, AND WORKED WITH PT TO GET UP TO THE CHAIR. PATIENT FATIGUED AFTER THIS AND SLEPT FOR THE REST OF HIS TIME HERE. DISCHARGE PACKET PROVIDED TO TRANSPORT. DISCHARGE REPORT CALLED TO VIJAYA. PATIENT STABLE AT TIME OF DISCHARGE.
== END 2023-02-28 14:10 | disposition home or self-care (01) | DRG 189 ==
LOC: ER 12:45 → MEDS 12:46 → ENPENDDIS 02-28 12:14 → MEDS 02-28 14:10
PROVIDERS: Emergency Medicine; Internal Medicine; Student in an Organized Health Care Education/Training Program; ADMIT Student in an Organized Health Care Education/Training Program
PROC: 5A09357 Assistance with Respiratory Ventilation, Less than 24 Consecutive Hours, Continuous Positive Airway Pressure (ICD-10-PCS; principal; 2023-02-27)
DX: J96.01 Acute respiratory failure with hypoxia (principal); G92.8 Other toxic encephalopathy; N17.9 Acute kidney failure, unspecified; E87.29 Other acidosis; I13.0 Hypertensive heart and chronic kidney disease with heart failure and stage 1 through stage 4 chronic kidney disease, or unspecified chronic kidney disease; Z66 Do not resuscitate; J96.02 Acute respiratory failure with hypercapnia; F32.A Depression, unspecified; D69.6 Thrombocytopenia, unspecified; E11.22 Type 2 diabetes mellitus with diabetic chronic kidney disease; R74.01 Elevation of levels of liver transaminase levels; D63.1 Anemia in chronic kidney disease; N18.30 Chronic kidney disease, stage 3 unspecified; F03.90 Unspecified dementia, unspecified severity, without behavioral disturbance, psychotic disturbance, mood disturbance, and anxiety; E03.9 Hypothyroidism, unspecified; I50.9 Heart failure, unspecified; Z79.899 Other long term (current) drug therapy; Z79.82 Long term (current) use of aspirin; Z79.890 Hormone replacement therapy; Z79.4 Long term (current) use of insulin; Z98.890 Other specified postprocedural states; Z99.81 Dependence on supplemental oxygen
CPT/HCPCS: 36415; 70450; 71046; 80053; 80069; 81003; 82607; 82728; 82746; 82803; 82947; 83540; 83550; 83735; 84145; 85025; 85027; 92610; 93005; 93010; 94660; 94762; 96360; 97162; 99285-25; A9270; J1650; J1815; J3486; J7030